=== PATIENT | male | born 1960 | race Caucasian/White ===

== ENCOUNTER 2020-06-09 17:37 | Emergency (ER) | payer OTHER, SELFPAY ==
--- NOTE | ~2020-06-09 | XR_ITS ---
EXAMINATION: XR tibia fibula LT 2V EXAM DATE: 06/09/2020 18:16 INDICATION: left low leg pain s/p injury 5 days ago . TECHNIQUE: Left tibia/fibula frontal and lateral projections obtained and reviewed. There is no prio r study for comparison. FINDINGS: There is bulky articulation of the proximal left tibiofibular syndesmosis, could be congen ital synostosis. Sequela from prior medial malleolar avulsion injury. There are no acute fractures or dislocations identified. There is no subcutaneous gas. The soft tissue is unremarkable. There ar e no radiopaque foreign bodies. IMPRESSION: 1. No acute left tibia/fibula findings. 2. Left proximal tibial fibular synostosis. Reviewed, dictated and finalized at location A.
[2020-06-09 17:48] VITALS: BP 132/87; PULSE 81; RESP 16; TEMP 36.7; O2SAT 99
--- NOTE | 2020-06-09 18:02 | ED.GENADULT ---
HPI - General Adult General Chief complaint: Extremity Injury, Lower Stated complaint: left leg fell Time Seen by Provider: 06/09/20 17:53 Source: patient and RN notes reviewed Mode of arrival: ambulatory Limitations: no limitations History of Present Illness HPI narrative: 59-year-old male presents with complaints of left lower leg pain for the past 5 days. Florin says he fell backwards off backhoe and leg was trapped between metal steps causing abrasions to leg. Aleve last this morning at 08:00 some relief. Denies radiation of pain. No numbness or tingling or bleeding. No swelling. No loss of mobility. Exacerbating factor consist of bearing weight to leg. Denies recent travel or long car rides. History of DVT or PE. No chest pain or dyspnea. Denies hitting head, loss of consciousness, seizure activity, dizziness, syncopal episodes. Remains active. Tetanus vaccine not up to date, will update today. The patient reports she have not been diagnosed with COVID-19. The patient reports she is not waiting for the results of a COVID-19 lab test. The patient reports she do not have fever, chills, weakness, fatigue, myalgia, or facial swelling. The patient reports she do not have a new or worsening cough or shortness of breath. Denies chest pain. The patient reports she do not have any rhinorrhea, congestion, sore throat, nausea, vomiting, abdominal pain, and diarrhea. Tolerating po intake well. Denies recent traveling. Denies concerns for COVID-19 or exposures been home with limited outdoor exposure except for essential household needs, work, and return home. At this time, patient is not suspected of having COVID-19. Some parts of this dictation were generated by voice recognition software and may contain typographical and/or grammatical inaccuracies. Related Data Home Medications Medication Instructions Recorded Confirmed aspirin 81 mg tablet,delayed 81 mg PO DAILY 07/11/19 06/09/20 release Allergies Allergy/AdvReac Type Severity Reaction Status Date / Time Penicillins Allergy Mild hives Verified 06/09/20 17:54 Review of Systems Review of Systems: Narrative: CONSTITUTIONAL: Denies fever, chills, sweats. EYES: Denies visual changes, redness, discharge. ENT: Denies rhinorrhea, congestion, sore throat, otalgia. CARDIOVASCULAR: Denies chest pain, palpitations, edema. RESPIRATORY: Denies dyspnea, wheezing, cough. GASTROINTESTINAL: Denies abdominal pain, nausea, vomiting, diarrhea. GENITOURINARY: Denies dysuria, hematuria, abnormal discharge SKIN: Denies rash or itching. Abrasions to LT lower leg without drainage. MUSCULOSKELETAL: Denies acute back pain or myalgia. Complains of Left lower leg pain. NEUROLOGIC: Denies numbness or focal weakness. PSYCHIATRIC: Denies anxiety or depression. All other systems reviewed & are unremarkable except as noted in HPI and below. [facility] Past Medical History Medical History (Updated 06/10/20 @ 00:00 by 2C2P Sultana) Depression HLD (hyperlipidemia) JORGE (obstructive sleep apnea) Primary osteoarthritis Rhinosinusitis Type 2 diabetes mellitus without complications Surgical History Surgical History History of sinus surgery History of tonsillectomy Family History Family History Mother Diabetes mellitus Sibling Diabetes mellitus Family history of cardiovascular disease Father Family history of cardiovascular disease Social History Social History (Updated 06/09/20 @ 18:05 by LEWIS Grimaldo) Social History: Single Smoking status: Never smoker Tobacco type: cigarettes Second hand tobacco smoke exposure: No Alcohol intake: current Drinks per week: 3 Substance use: never Substance use type: does not use Occupation/Education: occupation Gender identity (if verbalized by the patient): Male Comments At time of signature
[2020-06-09] MEDS: TETANUS,DIPHTHERIA,AC PERTUSSIS ADULT (0.5 ML) BOOSTRIX IM (18:11)
== END 2020-06-09 18:44 | disposition home or self-care (01) ==
PROVIDERS: Emergency Provider Nurse Practitioner Family; PCP Family Medicine
DX: S80.12XA Contusion of left lower leg, initial encounter (principal); X58.XXXA Exposure to other specified factors, initial encounter; S80.812A Abrasion, left lower leg, initial encounter; Z23 Encounter for immunization; E78.5 Hyperlipidemia, unspecified; E11.9 Type 2 diabetes mellitus without complications; G47.33 Obstructive sleep apnea (adult) (pediatric); M19.90 Unspecified osteoarthritis, unspecified site; Z79.82 Long term (current) use of aspirin
CPT/HCPCS: 73590; 90471; 90715; 99213; G0463

== ENCOUNTER → 2020-06-19 13:49 | Outpatient (CLI) | payer OTHER, SELFPAY ==
--- NOTE | ~2020-06-19 | XR_ITS ---
XR foot LT min 3V DATE: 06/19/2020 14:31 INDICATION: Left foot injury TECHNIQUE: 4 views COMPARISON: None FINDINGS: There is prominent plantar and slight posterior calcaneal enthesopathy. There is periarticular spurring of the distal tibia at the tibiotalar joint. No fracture or dislocation, periosteal reaction or bone destruction is detected. There is mild osteop hyte is at the first metatarsophalangeal joint. IMPRESSION: Prominent plantar and minimal posterior calcaneal enthesopathy Osteoarthritis at tibiotalar first metatarsophalangeal joints No fracture or dislocation Reviewed, dictated and finalized at location A.
--- NOTE | ~2020-06-19 | XR_ITS ---
EXAMINATION: XR ankle LT 2V DATE: 06/19/2020 14:31 INDICATION: Left foot injury, initial encounter. TECHNIQUE: 2 views of left ankle were obtained. COMPARISON: Left tibia and fibula radiographs 06/09/2020 FINDINGS: Bone alignment is normal. No acute fracture. Joint spaces are normal. There is heterotopic ossification distal to medial malleolus. There are enthesophytes at posterior and plantar aspects of calcaneal tuberosity and at base of fifth metatarsal. IMPRESSION: 1. No acute fracture. Reviewed, dictated and finalized at location A. IMPRESSION: 1. No acute fracture.
== END ==
PROVIDERS: PCP Family Medicine; Visit Provider Physician Assistant
DX: S99.922A Unspecified injury of left foot, initial encounter (principal); X58.XXXA Exposure to other specified factors, initial encounter; M19.072 Primary osteoarthritis, left ankle and foot
CPT/HCPCS: 73600; 73630

== ENCOUNTER 2022-05-27 01:26 | Day surgery (SDC) | payer OTHER, SELFPAY ==
[2022-05-16 11:54] VITALS: BMI 25.9
[2022-05-27 09:27] VITALS: BP 140/88; PULSE 59; RESP 20; TEMP 36; O2SAT 99; BMI 27.1
[2022-05-27] MEDS: LACTATED RINGERS 1,000 ML 150 ML IV CONT (09:49)
[2022-05-27 09:51] LABS: Glucose Point of Care 139 mg/dl (65-105)
--- NOTE | 2022-05-27 10:08 | PM.HPGS ---
History of Present Illness History of Present Illness Consent: Risks, benefits, and alternatives have been discussed and questions answered. Patient agrees to proceed with procedure. Chief complaint: GERD Narrative: Florin Cole is a 61 year old male With chronic gastroesophageal reflux symptoms. About 3 months ago he began having severe burning in his chest. This would last for hours. It gradually settled to the epigastric area. His symptoms are worse late in the evening during the night and in the morning. Often is worse after eating. He denies dysphagia. The pantoprazole that he is taking seems to be helping somewhat. He uses Tums and please give him a modicum of relief. Review of Systems Review of Systems: All systems reviewed & are unremarkable except as noted in HPI and below PMFSH Past Medical History Medical History Depression HLD (hyperlipidemia) JORGE (obstructive sleep apnea) Primary osteoarthritis Rhinosinusitis Type 2 diabetes mellitus without complications Surgical History Surgical History History of sinus surgery History of tonsillectomy Family History Family History Mother Diabetes mellitus Sibling Diabetes mellitus Family history of cardiovascular disease Father Family history of cardiovascular disease Social History Social History Social History: Single Smoking status: Never smoker Tobacco type: cigarettes Second hand tobacco smoke exposure: No Alcohol intake: current Drinks per week: 10 Alcohol use details: BEER/WINE Substance use: never Substance use type: does not use Living arrangements: with family Gender identity (if verbalized by the patient): Male Spiritual care concerns: No Meds Home Medications and Allergies Home Medications Medication Instructions Recorded Confirmed Type aspirin 81 mg tablet,delayed 162 mg PO DAILY 07/11/19 05/27/22 History release blood sugar diagnostic (Contour #100 ea 08/11/20 05/27/22 Rx Next Test Strips) blood-glucose meter (Contour Next #1 ea 08/11/20 05/27/22 Rx Meter) escitalopram oxalate 10 mg tablet See Rx Instructions .Route 07/20/21 05/27/22 Rx .COMPLEX #90 tabs simvastatin 10 mg tablet 10 mg PO DAILY #90 tabs 10/13/21 05/27/22 Rx empagliflozin 25 mg tablet 25 mg PO DAILY #90 tabs 01/28/22 05/27/22 Rx pantoprazole 40 mg tablet,delayed 40 mg PO QAM #90 tabs 03/07/22 05/27/22 Rx release metformin 1,000 mg tablet 1,000 mg PO BID #180 tabs 04/18/22 05/27/22 Rx ferrous sulfate 325 mg (65 mg 325 mg PO DAILY 05/16/22 05/27/22 History iron) tablet meloxicam 15 mg tablet 15 mg PO DAILY 05/16/22 05/27/22 History Allergies Allergy/AdvReac Type Severity Reaction Status Date / Time Penicillins Allergy Intermediate hives Verified 05/27/22 09:25 Vital Signs Vital Signs - 24 hr 05/27/22 09:27 Temperature 36.0 C L Pulse Rate 59 L Respiratory Rate 20 Blood Pressure 140/88 Pulse Oximetry 99 Oxygen Delivery Room Air Exam Const: General: alert Orientation/consciousness: patient oriented x3 Resp: Auscultation: clear to auscultation bilaterally Cardio: Rhythm: regular rhythm GI: GI Palp: Yes Soft to palpation and No Tenderness to palpation present (GI) Neuro: General: patient oriented x3 Assessment and Plan Assessment and plan (1) GERD (gastroesophageal reflux disease): Code(s): K21.9 - Gastro-esophageal reflux disease without esophagitis Status: Acute Assessment and Plan: EGD with possible biopsy or dilatation or cautery.
--- NOTE | 2022-05-27 10:12 | WPDANESEPPF ---
Anes - Initial Pre Proc Eval Procedure: Operation Date: 05/27/22 10:30 Proposed Procedures p Esophagogastroduodenoscopy - Ritchie Landry MD Date/Time: 05/27/22 10:12 Surgeon: Ritchie Landry MD Pre Op Diagnosis: GERD Patient Data Age: 61 Gender: M Height: 1.78 m Weight: 85.9 kg Last Vital Signs Temp 96.8 F L 05/27/22 09:27 Pulse 59 L 05/27/22 09:27 Resp 20 05/27/22 09:27 BP 140/88 05/27/22 09:27 Pulse Ox 99 05/27/22 09:27 O2 Del Method Room Air 05/27/22 09:27 Allergies Allergy/AdvReac Type Severity Reaction Status Date / Time Penicillins Allergy Intermediate hives Verified 05/27/22 09:25 Home Medications Medication Instructions Recorded Confirmed Type aspirin 81 mg tablet,delayed 162 mg PO DAILY 07/11/19 05/27/22 History release blood sugar diagnostic (Contour #100 ea 08/11/20 05/27/22 Rx Next Test Strips) blood-glucose meter (Contour Next #1 ea 08/11/20 05/27/22 Rx Meter) escitalopram oxalate 10 mg tablet See Rx Instructions .Route 07/20/21 05/27/22 Rx .COMPLEX #90 tabs simvastatin 10 mg tablet 10 mg PO DAILY #90 tabs 10/13/21 05/27/22 Rx empagliflozin 25 mg tablet 25 mg PO DAILY #90 tabs 01/28/22 05/27/22 Rx pantoprazole 40 mg tablet,delayed 40 mg PO QAM #90 tabs 03/07/22 05/27/22 Rx release metformin 1,000 mg tablet 1,000 mg PO BID #180 tabs 04/18/22 05/27/22 Rx ferrous sulfate 325 mg (65 mg 325 mg PO DAILY 05/16/22 05/27/22 History iron) tablet meloxicam 15 mg tablet 15 mg PO DAILY 05/16/22 05/27/22 History Laboratory Tests 05/27/22 09:48 POC Capillary Glucose 139 mg/dl H mg/dl (65-105) Patient hx anesthesia problems: none Family hx anesthesia problems: none Results Review: All pre-operative results and documents have been reviewed as part of the pre-operative evaluation. [facility] Past Medical History Medical History Depression HLD (hyperlipidemia) JORGE (obstructive sleep apnea) Primary osteoarthritis Rhinosinusitis Type 2 diabetes mellitus without complications Surgical History Surgical History History of sinus surgery History of tonsillectomy Family History Family History Mother Diabetes mellitus Sibling Diabetes mellitus Family history of cardiovascular disease Father Family history of cardiovascular disease Social History Social History Social History: Single Smoking status: Never smoker Tobacco type: cigarettes Second hand tobacco smoke exposure: No Alcohol intake: current Drinks per week: 10 Alcohol use details: BEER/WINE Substance use: never Substance use type: does not use Living arrangements: with family Gender identity (if verbalized by the patient): Male Spiritual care concerns: No Anes - Eval Final PreProcedure Day of Procedure 05/27/22 10:12 Patient weight: overweight Heart: regular rate and rhythm Lungs: clear to auscultation Airway: Mallampati scale class II Neurological: alert and oriented Last oral intake: >/= 8 hours ASA classification: III Emergent: no Anesthetic plan: proceed Anesthesia type and monitoring: general GIVS and standard monitoring Results Review: All pre-operative results and documents have been reviewed as part of the pre-operative evaluation. Informed Consent: The patient's anesthetic plan and its attendant risks and benefits were discussed with the patient/family/POA. Questions were solicited and answers provided to the satisfaction of the patient/family/POA.
[2022-05-27 10:30] VITALS: BP 111/62; PULSE 61; RESP 20; O2SAT 97
[2022-05-27 10:40] VITALS: BP 119/69; PULSE 56; RESP 20; O2SAT 100
[2022-05-27 10:50] VITALS: BP 112/70; PULSE 49; RESP 20; O2SAT 99
== END 2022-05-27 11:03 | disposition home or self-care (01) ==
PROVIDERS: PCP Family Medicine; Visit Provider Internal Medicine Gastroenterology
PROC: 0DJ08ZZ Inspection of Upper Intestinal Tract, Via Natural or Artificial Opening Endoscopic (ICD-10-PCS; CPT 43235; principal; 2022-05-27 10:30)
DX: K21.00 Gastro-esophageal reflux disease with esophagitis, without bleeding (principal); K22.2 Esophageal obstruction; K26.9 Duodenal ulcer, unspecified as acute or chronic, without hemorrhage or perforation; F32.A Depression, unspecified; E78.5 Hyperlipidemia, unspecified; G47.33 Obstructive sleep apnea (adult) (pediatric); M19.90 Unspecified osteoarthritis, unspecified site; E11.9 Type 2 diabetes mellitus without complications; Z79.82 Long term (current) use of aspirin; Z79.84 Long term (current) use of oral hypoglycemic drugs
CPT/HCPCS: 43239; 82948; 87081; 88305; J2001; J2704; J7120

== ENCOUNTER 2022-08-28 17:59 | Emergency (ER) | payer OTHER, SELFPAY ==
--- NOTE | ~2022-08-28 | XR_ITS ---
EXAM: XR hand RT min 3V DATE: 08/28/2022 19:00 HISTORY: SMASHED R.2ND DIGIT W/TREE STUMP. . COMPARISON: None available. FINDINGS: Normal mineralization. No fracture or dislocation. No lytic or blastic lesion. Joint space s are maintained. No erosion or periosteal change. Soft tissue laceration at the tip of the index fin sebastián. IMPRESSION: No acute osseous finding in the right hand. Reviewed, dictated and finalized at location K. FORMER
[2022-08-28 18:04] VITALS: BP 138/93; PULSE 88; RESP 18; TEMP 37; O2SAT 98
--- NOTE | 2022-08-28 19:03 | ED.WOUNDLAC ---
HPI - Wound/Laceration General Chief Complaint: Wound/Laceration Stated Complaint: right index finger smashed Time Seen by Provider: 08/28/22 18:18 History of Present Illness HPI narrative: 62-year-old male presents to the emergency room for evaluation of finger injury to his right index finger. Patient states finger was crushed in between the tree stump and his back. States the nail was ripped out of the nailbed. Tetanus is up-to-date. Related Data Home Medications Medication Instructions Recorded Confirmed aspirin 81 mg tablet,delayed 162 mg PO DAILY 07/11/19 05/27/22 release ferrous sulfate 325 mg (65 mg 325 mg PO DAILY 05/16/22 05/27/22 iron) tablet meloxicam 15 mg tablet 15 mg PO DAILY 05/16/22 05/27/22 Allergies Allergy/AdvReac Type Severity Reaction Status Date / Time Penicillins Allergy Intermediate hives Verified 08/28/22 19:04 Review of Systems Review of Systems: CONSTITUTIONAL: Denies fever, chills, or sweats. EYES: Denies visual changes, redness, or discharge. ENT: Denies rhinorrhea, congestion, sore throat, or otalgia. CARDIOVASCULAR: Denies chest pain, palpitations, or edema. RESPIRATORY: Denies cough or dyspnea. GASTROINTESTINAL: Denies abdominal pain, nausea, vomiting, or diarrhea. GENITOURINARY: Denies dysuria or hematuria. SKIN: Denies rash or itching. MUSCULOSKELETAL: Denies back pain, joint pain, or myalgia. NEUROLOGIC: Denies headache, numbness, dizziness, or weakness. PSYCHIATRIC: Denies anxiety or depression. [facility] Past Medical History Medical History Depression HLD (hyperlipidemia) JORGE (obstructive sleep apnea) Primary osteoarthritis Rhinosinusitis Type 2 diabetes mellitus without complications Surgical History Surgical History History of sinus surgery History of tonsillectomy Family History Family History Mother Diabetes mellitus Sibling Diabetes mellitus Family history of cardiovascular disease Father Family history of cardiovascular disease Social History Social History Social History: Single Smoking status: Never smoker Tobacco type: cigarettes Second hand tobacco smoke exposure: No Alcohol intake: current Drinks per week: 10 Alcohol use details: BEER/WINE Substance use: never Substance use type: does not use Gender identity (if verbalized by the patient): Male Spiritual care concerns: No Exam Narrative: GENERAL: Well-appearing, well-nourished, no physical limitations, and in no acute distress. HEAD: Normocephalic, atraumatic. EYES: Conjunctivae normal, PERRLA and EOMI. CHEST: Clear to auscultation. No respiratory distress. No wheezes rales or rhonchi. HEART: Regular rate and rhythm. No murmur heard. Normal peripheral pulses. EXTREMITIES: Normal range of motion. No edema. No clubbing or cyanosis SKIN: Right index finger: Partial nail from the proximal and medial nail beds, laceration to the side of the nail and multiple small lacerations to the fingertip. Neurovascular is intact distally NEURO: No focal deficits. Alert and oriented x3. MAEW. CN's II-XI intact bilaterally, normal gait PSYCH: Cooperative. Normal mood and affect. Course Vital Signs Vital signs: Vital Signs Temperature 37.0 C 08/28/22 18:04 Pulse Rate 88 08/28/22 18:04 Respiratory Rate 18 08/28/22 18:04 Blood Pressure 138/93 H 08/28/22 18:04 Pulse Oximetry 98 08/28/22 18:04 Oxygen Delivery Room Air 08/28/22 18:04 Temperature 37.0 C 08/28/22 18:04 Pulse Rate 88 08/28/22 18:04 Respiratory Rate 18 08/28/22 18:04 Blood Pressure 138/93 H 08/28/22 18:04 Pulse Oximetry 98 08/28/22 18:04 Oxygen Delivery Room Air 08/28/22 18:04 Procedures Laceration Laceration 1: Date: 08/28/22 Time: 20:
[2022-08-28] MEDS: HYDROmorphone HCL INJ (*CRX) 1 MG/ML SYR IV PUSH (20:18)
== END 2022-08-28 21:09 | disposition home or self-care (01) ==
PROVIDERS: Emergency Provider Nurse Practitioner Family; PCP Family Medicine
DX: S61.310A Laceration without foreign body of right index finger with damage to nail, initial encounter (principal); E11.9 Type 2 diabetes mellitus without complications; E78.5 Hyperlipidemia, unspecified; M19.90 Unspecified osteoarthritis, unspecified site; G47.33 Obstructive sleep apnea (adult) (pediatric); F32.A Depression, unspecified; Z79.85 Long-term (current) use of injectable non-insulin antidiabetic drugs; Z79.84 Long term (current) use of oral hypoglycemic drugs; W31.89XA Contact with other specified machinery, initial encounter
CPT/HCPCS: 12002; 73130; 96365; 96375; 99284; J0696; J1170

== ENCOUNTER 2023-09-01 03:34 | Day surgery (SDC) | payer OTHER, SELFPAY ==
[2023-08-15 09:18] VITALS: BMI 25.1
--- NOTE | 2023-08-30 11:09 | SUR.PREOP ---
Patient called regarding upcoming procedure. Reviewed preop instructions, appointment times, and procedure prep.
--- NOTE | 2023-08-31 17:59 | PM.HPGS ---
History of Present Illness History of Present Illness Consent: Risks, benefits, and alternatives have been discussed and questions answered. Patient agrees to proceed with procedure. Chief complaint: GERD Narrative: Florin Cole is a 63 year old male Referred for endoscopy because of chronic reflux symptoms.A he continues having severe burning in his chest.? This would last for hours.? It gradually settled to the epigastric area.? His symptoms are worse late in the evening during the night and in the morning. lately the burning will last all night long. He has not tried taking anything for it.? He was found have several duodenal ulcers when he had endoscopy Two years ago. Review of Systems Review of Systems: All systems reviewed & are unremarkable except as noted in HPI and below PMFSH Past Medical History Medical History Depression HLD (hyperlipidemia) HTN (hypertension) JORGE (obstructive sleep apnea) Primary osteoarthritis Rhinosinusitis Type 2 diabetes mellitus without complications Surgical History Surgical History History of sinus surgery History of tonsillectomy Family History Family History Mother Diabetes mellitus Sibling Diabetes mellitus Family history of cardiovascular disease Father Family history of cardiovascular disease Social History Social History Social History: Single Smoking status: Never smoker Tobacco type: cigarettes Second hand tobacco smoke exposure: No Alcohol intake: current Drinks per week: 10 Alcohol use details: BEER/WINE Substance use: never Substance use type: does not use Living arrangements: alone Occupation/Education: occupation Gender identity (if verbalized by the patient): Male Spiritual care concerns: No Meds Home Medications and Allergies Home Medications Medication Instructions Recorded Confirmed Type aspirin 81 mg tablet,delayed 162 mg PO DAILY 07/11/19 08/15/23 History release blood sugar diagnostic (Contour #100 ea 08/11/20 08/15/23 Rx Next Test Strips) blood-glucose meter (Contour Next #1 ea 08/11/20 08/15/23 Rx Meter) ferrous sulfate 325 mg (65 mg 325 mg PO DAILY 05/16/22 08/15/23 History iron) tablet metformin 1,000 mg tablet 1,000 mg PO BID #180 tabs 12/08/22 08/15/23 Rx lancets 33 gauge (OneTouch Delica #100 ea 04/05/23 08/15/23 Rx Plus Lancet) lancing device with lancets kit #1 ea 04/10/23 08/15/23 Rx (OneTouch Delica Plus Lancing Device kit) empagliflozin 25 mg tablet See Rx Instructions .Route 04/27/23 08/15/23 Rx (Jardiance) .COMPLEX #90 tabs escitalopram oxalate 10 mg tablet See Rx Instructions .Route 04/27/23 08/15/23 Rx .COMPLEX #90 tabs lisinopril 10 mg tablet 10 mg PO DAILY #90 tabs 04/27/23 08/15/23 Rx simvastatin 10 mg tablet 10 mg PO DAILY #90 tabs 04/27/23 08/15/23 Rx semaglutide 0.25 mg or 0.5 mg (2 0.5 mg (0.736 mL) subcut WEEKLY #9 05/12/23 09/01/23 Rx mg/3 mL) subcutaneous pen injector mL (Ozempic) pen needle, diabetic 33 gauge x #10 ea 05/15/23 08/15/23 Rx 5/32 (Comfort EZ Pen [place]) pantoprazole 40 mg tablet,delayed 40 mg PO QAM #90 tabs 05/30/23 08/15/23 Rx release meloxicam 15 mg tablet 15 mg PO DAILY #90 tabs 06/28/23 08/15/23 Rx Allergies Allergy/AdvReac Type Severity Reaction Status Date / Time Penicillins Allergy Intermediate hives Verified 09/01/23 12:03 Exam Const: General: alert Orientation/consciousness: patient oriented x3 Resp: Auscultation: clear to auscultation bilaterally Cardio: Rhythm: regular rhythm GI: GI Palp: Yes Soft to palpation and No Tenderness to palpation present (GI) Neuro: General: patient oriented x3 Assessment and Plan Assessment and plan (1) GERD (gastroesophageal reflux disease):
[2023-09-01 12:04] VITALS: BP 121/83; PULSE 71; RESP 20; TEMP 36.4; O2SAT 96; BMI 25.2
[2023-09-01] MEDS: LACTATED RINGERS 1,000 ML 150 ML IV CONT (12:13)
--- NOTE | 2023-09-01 12:18 | WPDANESEPPF ---
Anes - Initial Pre Proc Eval Procedure: Operation Date: 09/01/23 13:00 Proposed Procedures p Esophagogastroduodenoscopy - Ritchei Landry MD Date/Time: 09/01/23 12:18 Surgeon: Ritchie Landry MD Pre Op Diagnosis: GERD Patient Data Age: 63 Gender: M Height: 1.78 m Weight: 79.8 kg Last Vital Signs Temp 97.5 F L 09/01/23 12:04 Pulse 71 09/01/23 12:04 Resp 20 09/01/23 12:04 BP 121/83 09/01/23 12:04 Pulse Ox 96 09/01/23 12:04 O2 Del Method Room Air 09/01/23 12:04 Allergies Allergy/AdvReac Type Severity Reaction Status Date / Time Penicillins Allergy Intermediate hives Verified 09/01/23 12:03 Home Medications Medication Instructions Recorded Confirmed Type aspirin 81 mg tablet,delayed 162 mg PO DAILY 07/11/19 08/15/23 History release blood sugar diagnostic (Contour #100 ea 08/11/20 08/15/23 Rx Next Test Strips) blood-glucose meter (Contour Next #1 ea 08/11/20 08/15/23 Rx Meter) ferrous sulfate 325 mg (65 mg 325 mg PO DAILY 05/16/22 08/15/23 History iron) tablet metformin 1,000 mg tablet 1,000 mg PO BID #180 tabs 12/08/22 08/15/23 Rx lancets 33 gauge (OneTouch Delica #100 ea 04/05/23 08/15/23 Rx Plus Lancet) lancing device with lancets kit #1 ea 04/10/23 08/15/23 Rx (OneTouch Delica Plus Lancing Device kit) empagliflozin 25 mg tablet See Rx Instructions .Route 04/27/23 08/15/23 Rx (Jardiance) .COMPLEX #90 tabs escitalopram oxalate 10 mg tablet See Rx Instructions .Route 04/27/23 08/15/23 Rx .COMPLEX #90 tabs lisinopril 10 mg tablet 10 mg PO DAILY #90 tabs 04/27/23 08/15/23 Rx simvastatin 10 mg tablet 10 mg PO DAILY #90 tabs 04/27/23 08/15/23 Rx semaglutide 0.25 mg or 0.5 mg (2 0.5 mg (0.736 mL) subcut WEEKLY #9 05/12/23 09/01/23 Rx mg/3 mL) subcutaneous pen injector mL (Ozempic) pen needle, diabetic 33 gauge x #10 ea 05/15/23 08/15/23 Rx 5/32 (Comfort EZ Pen [place]) pantoprazole 40 mg tablet,delayed 40 mg PO QAM #90 tabs 05/30/23 08/15/23 Rx release meloxicam 15 mg tablet 15 mg PO DAILY #90 tabs 06/28/23 08/15/23 Rx Laboratory Tests 09/01/23 12:16 POC Capillary Glucose Pending Patient hx anesthesia problems: none Family hx anesthesia problems: none Results Review: All pre-operative results and documents have been reviewed as part of the pre-operative evaluation. [facility] Past Medical History Medical History Depression HLD (hyperlipidemia) HTN (hypertension) JORGE (obstructive sleep apnea) Primary osteoarthritis Rhinosinusitis Type 2 diabetes mellitus without complications Surgical History Surgical History History of sinus surgery History of tonsillectomy Family History Family History Mother Diabetes mellitus Sibling Diabetes mellitus Family history of cardiovascular disease Father Family history of cardiovascular disease Social History Social History Social History: Single Smoking status: Never smoker Tobacco type: cigarettes Second hand tobacco smoke exposure: No Alcohol intake: current Drinks per week: 10 Alcohol use details: BEER/WINE Substance use: never Substance use type: does not use Living arrangements: alone Occupation/Education: occupation Gender identity (if verbalized by the patient): Male Spiritual care concerns: No Anes - Eval Final PreProcedure Day of Procedure 09/01/23 12:18 Patient weight: normal Heart: regular rate and rhythm Lungs: clear to auscultation Airway: Mallampati scale class II Neurological: alert and oriented Last oral intake: >/= 8 hours ASA classification: III Emergent: no Anesthetic plan: proceed Anesthesia type and monitoring: general GIVS and standard monitoring Results Review: All pre-operative results an
[2023-09-01 12:19] LABS: Glucose Point of Care 106 mg/dl (65-105)
[2023-09-01 12:50] VITALS: BP 135/91; PULSE 78; RESP 20; O2SAT 98
[2023-09-01 13:00] VITALS: BP 132/93; PULSE 80; RESP 20; O2SAT 98
[2023-09-01 13:10] VITALS: BP 138/91; PULSE 78; RESP 20; O2SAT 98
== END 2023-09-01 13:28 | disposition home or self-care (01) ==
PROVIDERS: PCP Family Medicine; Visit Provider Internal Medicine Gastroenterology
PROC: 0DJ08ZZ Inspection of Upper Intestinal Tract, Via Natural or Artificial Opening Endoscopic (ICD-10-PCS; CPT 43235; principal; 2023-09-01 13:00)
DX: K21.9 Gastro-esophageal reflux disease without esophagitis (principal); E78.5 Hyperlipidemia, unspecified; I10 Essential (primary) hypertension; E11.9 Type 2 diabetes mellitus without complications; G47.33 Obstructive sleep apnea (adult) (pediatric)
CPT/HCPCS: 43235; 82948; J2704; J7120

== ENCOUNTER 2023-09-24 14:13 | Emergency (ER) | payer OTHER, SELFPAY ==
[2023-09-24 14:14] VITALS: BP 126/74; PULSE 82; RESP 18; TEMP 36.4; O2SAT 100
--- NOTE | 2023-09-24 17:59 | ED.WOUNDLAC ---
HPI - Wound/Laceration General Chief Complaint: Wound/Laceration Stated Complaint: laceration Time Seen by Provider: 09/24/23 17:10 Source: patient Mode of arrival: ambulatory Limitations: no limitations History of Present Illness HPI narrative: This is a 63 year old male that presents to the ER for left 4th finger laceration sustained this afternoon. Reports he was using a saw and accidentally cut his finger with a piece of plastic. Reports bleeding and pain to the area. He is up to date on tetanus. Denies decreased ROM or numbness. Related Data Home Medications Medication Instructions Recorded Confirmed aspirin 81 mg tablet,delayed 162 mg PO DAILY 07/11/19 08/15/23 release ferrous sulfate 325 mg (65 mg 325 mg PO DAILY 05/16/22 08/15/23 iron) tablet Allergies Allergy/AdvReac Type Severity Reaction Status Date / Time Penicillins Allergy Intermediate hives Verified 09/24/23 14:14 Review of Systems Review of Systems: CONSTITUTIONAL: Denies fever SKIN: Reports laceration MUSCULOSKELETAL: Denies joint pain, or myalgia. NEUROLOGIC: Denies numbness All systems reviewed & are unremarkable except as noted in HPI and below PMFSH Past Medical History Medical History Depression HLD (hyperlipidemia) HTN (hypertension) JORGE (obstructive sleep apnea) Primary osteoarthritis Rhinosinusitis Type 2 diabetes mellitus without complications Surgical History Surgical History History of sinus surgery History of tonsillectomy Family History Family History Mother Diabetes mellitus Sibling Diabetes mellitus Family history of cardiovascular disease Father Family history of cardiovascular disease Social History Social History Social History: Single Smoking status: Never smoker Tobacco type: cigarettes Second hand tobacco smoke exposure: No Alcohol intake: current Drinks per week: 10 Alcohol use details: BEER/WINE Substance use: never Substance use type: does not use Living arrangements: alone Occupation/Education: occupation Gender identity (if verbalized by the patient): Male Spiritual care concerns: No Exam Narrative: GENERAL: Well-appearing, well-nourished, and in no acute distress. HEAD: Normocephalic, atraumatic. EYES: EOMI. EXTREMITIES: Normal range of motion. No edema or obvious deformity. 1cm linear laceration into subcutaneous tissue to the distal phalanx palmar surface SKIN: Warm, dry, no rash. NEURO: No focal deficits. Alert and oriented x3. PSYCH: Normal mood and affect Course Course Emergency Course: Patient educated on wound care Vital Signs Vital signs: Vital Signs Temperature 97.6 F 09/24/23 14:14 Pulse Rate 82 09/24/23 14:14 Respiratory Rate 18 09/24/23 14:14 Blood Pressure 126/74 09/24/23 14:14 Pulse Oximetry 100 09/24/23 14:14 Oxygen Delivery Room Air 09/24/23 14:14 Temperature 97.6 F 09/24/23 14:14 Pulse Rate 82 09/24/23 14:14 Respiratory Rate 18 09/24/23 14:14 Blood Pressure 126/74 09/24/23 14:14 Pulse Oximetry 100 09/24/23 14:14 Oxygen Delivery Room Air 09/24/23 14:14 Procedures Laceration Laceration 1: Date: 09/24/23 Time: 18:56 Site: hand Side (If applicable): left Size (cm): 1 Description: linear Depth: simple, single layer Local Anesthetic: lidocaine 1% Amount of anesthesia used (mL): 3 Pre-repair: wound explored and irrigated ====== Skin Level ====== Skin layer closed with: nylon Size (cm): 4-0 Number of sutures: 1 Technique: simple, interrupted ====== Subcutaneous Layer ====== ====== Muscle Layer ====== ====== Tendon Layer ====== MDM - Wound/Laceratio
== END 2023-09-24 19:23 | disposition home or self-care (01) ==
PROVIDERS: Emergency Provider Physician Assistant; PCP Family Medicine
DX: S61.215A Laceration without foreign body of left ring finger without damage to nail, initial encounter (principal); E78.5 Hyperlipidemia, unspecified; I10 Essential (primary) hypertension; E11.9 Type 2 diabetes mellitus without complications; W27.0XXA Contact with workbench tool, initial encounter
CPT/HCPCS: 12001; 99282

== ENCOUNTER 2024-09-13 02:32 | Day surgery (SDC) | payer OTHER, SELFPAY ==
[2024-09-03 09:19] VITALS: BMI 25.1
--- OUTSIDE RECORDS SUMMARY | 2024-09-13 06:29 | XMS_ITS | Data Portability ---
Author Organization [place] - [facility], Parisa Phillip Address [address] [place] [address] Care Team Providers Care Sales Representative Cash Registers Name Role Phone HUMA MALONE Primary Care Provider Assessment Encounter Date Assessment Date Assessment LastModified by Organization Details LastModified Time 03/21/2024 03/21/2024 LABS Patient presents today for noted below ordered by: Christiano Jorgensen Procedure explained and patient verbalized understanding of the procedure and labs to be drawn today. Venipuncture performed using aseptic technique in the side of right side arm . Venipuncture successful on the ____1__ attempt with no complications. ( If complications: you can enter here) ??? Dressing applied to the site(s) and pressure held. No signs or symptoms of venipuncture complications observed. Lab results sent to . Patient left ambulatory with no complaints of pain or discomfort voiced. I mar one tiger stripe tube [email or web address] Not available 03/21/2024 10:44:02 05/30/2024 05/30/2024 Gave the influenza vaccine today on patient left deltoid. Patient left with no complications. [email or web address] Not available 05/30/2024 15:12:35 Plan of Treatment Reminders Order Date Submit Date Provider Last Modified By Organization Details Last Modified Time Details Appointments None recorded. Lab HbA1c (hemoglobin A1c), blood 2023 024 [email or web address] [address] [place], [address], 4 10:55:35 lipid panel, blood 2023 024 [email or web address] [address] [facility] [address], [address], 4 10:55:36 glucose, QN, fingerstick , blood (glucometer ) 2023 024 [email or web address] [address] [facility] [address], [address], 4 10:55:37 cotinine, quantitativ e, unspecified specimen 2023 024 [place] [email or web address] [address] [facility] [address], [address], 4 10:55:38 lipid panel, serum [address] [facility], [address] [place] [address], [place], [address], 10:08:48 Referral None recorded. Procedures None recorded. Surgeries None recorded. Imaging None recorded. Medication Orders None recorded. Patient TargetsNo targets recorded. Patient InstructionsNo instructions recorded. Reason for Referral None Reported. Results Created Date Observation Date Name Description Value Unit Range Abnormal Flag Note LastModifiedBy Organization Detail LastModifiedTime 03/21/20 24 03/22/2024 LIPID PANEL AND CHOL/ HDL RATIO cholesterol, total 166 mg/dL 100-19 9 normal Not Available [facility] ([facility]) [address] [facility], [place], [address], 03/22/2024 10:08:47 03/21/20 24 03/22/2024 LIPID PANEL AND CHOL/ HDL RATIO triglyceride s 71 mg/dL 0-149 normal Not Available [facility] ([facility]) [address] [facility], [place], [address], 03/22/2024 10:08:47 03/21/20 24 03/22/2024 LIPID PANEL AND CHOL/ HDL RATIO HDL cholesterol 71 mg/dL >39 normal Not Available [facility]) [address] [facility], [place], [address], 03/22/2024 10:08:47 03/21/20 24 03/22/2024 LIPID PANEL AND CHOL/ HDL RATIO VLDL cholesterol booker 14 mg/dL 5-40 Not Available [facility] ([facility]) [address] [facility] [place], [address], 03/22/2024 10:08:47 03/21/20 24 03/22/2024 LIPID PANEL AND CHOL/ HDL RATIO LDL chol calc ([facility]) 81 mg/dL 0-99 Not Available 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) [address] [facility], [place], [address], 03/22/2024 10:08:47 03/21/20 24 03/22/2024 LIPID PANEL AND CHOL/ HDL RATIO T. chol/HDL ratio 2.3 ratio 0.0-5. 0 T. Chol/ HDL Ratio Men Women 1/2 Avg.R isk 3.4 3.3 Avg.R isk 5.0 4.4 2X Avg.R isk 9.6 7.1 3X Avg.R isk 23.4 11.0 Not Available [facility] ([facility]) [address] [place], [address], 03/22/2024 10:08:47 03/21/20 24 03/21/2024 HbA1c (hemo globi n A1c), blood HbA1c 6.5 Not Available [address], [address], 03/21/2024 08:28:01 03/21/20 24 03/21/2024 lipid panel , blood total cholesterol >400 mg/dL <200 Not Available [address], [address], 03/21/2024 08:28:01 03/21/20 24 03/21/2024 lipid panel , blood LDL mg/dL <100 Not Available [address], [address], 03/21/2024 08:28:01 03/21/20 24 03/21/2024 lipid panel , blood HDL 119 mg/dL >50 Not Available [address], [address], 03/21/2024 08:28:01 03/21/20 24 03/21/2024 lipid panel , blood triglyceride s 239 mg/dL <150 Not Available [address], [address], 03/21/2024 08:28:01 03/21/20 24 03/21/2024 lipid panel , blood TC/HDL ratio <4.5 Not Available [address], [address], 03/21/2024 08:28:01 03/21/20 24 03/21/2024 gluco se, QN, finge rstic k, blood (gluc omete r) blood glucose (fasting) 149 md/dL 65-99 Not Available [address], [address], 03/21/2024 08:28:01 03/21/20 24 03/21/2024 gluco se, QN, finge rstic k, blood (gluc omete r) blood glucose (non-fasting ) mg/dL <140 Not Available [facility] - [address], [address], 03/21/2024 08:28:01 03/21/20 24 03/21/2024 cotin ine, quant itati ve, unspe cifie d speci men Urine Pass Not Available [facility] - [address], [address], 03/21/2024 08:28:01 Result Notes None recorded. Problems Name Problem SNOMED Code Status Onset Date Resolution Date Notes Provider Name and Address Organization Details Recorded Time Contusio n of eye 525759324 Active 2022 CHRISTIANO JORGENSEN NP [address], [facility] [place], [address] , [place] - [facility] 3 16:22:28 Contusio n of eye 667563790 Active 2022 CHRISTIANO JORGENSEN NP [address], [facility] [place], [address] , [place] [facility] 3 16:30:13 Hyperlip idemia 70833785 Active 2015 Hyperlip idemia; PROBABIL ITY: 0 Confir mation: Confirme carissa Doradoa tedDispl ay: Hyperlip idemia C lassific ation: Medical [facility] eDateTim e: 19:18:54 +00:00 Not Available [facility] 4 04:26:26 Blephari tis of left eyelid [id number] 9102 Completed 202110/03/2023 Blephari tis of left eyelid; PROBABIL ITY: 0 SENSIT IVITY: 0.0 Conf irmation : Confirme d Annota tedDispl ay: Blephari tis of left eye Clas sifamariti on: Medical Not Available [facility] 4 04:26:27 Requires varicell a vaccinat ion 662654621 Active 2022 Requires varicell a vaccinat ion; PROBABIL ITY: 0 SENSIT IVITY: 0.0 Conf irmation : Confirme carissa Annota tedDispl ay: Need for shingles vaccine Classifi cation: Medical Lifecycl eDateTim e: 20:32:00 +00:00 Not Available [facility] 4 04:26:27 Sleep apnea 31319482 Active 2015 Sleep apnea... ..; PROBABIL ITY: 0 Confir mation: Confirme d Annota tedDispl ay: Sleep apnea Cl assifica tion: Medical Lifecycl eDateTim e: 17:20:18 +00:00 Not Available [facility] 4 04:26:27 Seasonal allergic rhinitis 331070411 Active 2015 Seasonal allergie s.....; PROBABIL ITY: 0 Confir mation: Confirme d Annota tedDispl ay: Seasonal allergie s Classi fication : Medical Lifecycl eDateTim e: 19:18:34 +00:00 Not Available [facility] 4 04:26:27 Hyperten sive disorder 03969684 Active 2017 Hyperten sive disorder ; PROBABIL ITY: 0 Confir mation: Confirme d Annota tedDispl ay: Hyperten jm Cla ssificat ion: Medical Lifecycl eDateTim e: 19:23:17 +00:00 Not Available [facility] 4 04:26:27 Arthriti s 1594297 Active 2015 Arthriti s; PROBABIL ITY: 0 Confir mation: Confirme d Annota tedDispl ay: Arthriti s Classi fication : Medical Lifecycl eDateTim e: 19:19:42 +00:00 Not Available [facility] 4 04:26:27 Type 2 diabetes mellitus 19355965 Active 2015 Diabetes mellitus type 2; PROBABIL ITY: 0 Confir mation: Confirme d Annota tedDispl ay: Diabetes mellitus type 2 Classi fication : Medical Lifecycl eDateTim e: 17:19:48 +00:00 Not Available [facility] 4 04:26:27 Problem Notes None recorded. Medical Equipment None Reported. Allergies Allergen ID Allergen Name Allergen Category Reaction Reaction Severity Criticality Documentation Date Start Date Code Code System Note Provider Name and Address Organization Details Recorded Time 578982 Product containin g penicilli n and antibioti c (product) medicatio n hives Not available low 06/13/2023 01377 05 SNOMED [place] Jolene null, [place] - [facility] 3 14:31:30 Medications Name Sig Start Date Stop Date Status Note LastModified by Organization Details LastModified Time Lidocaine Viscous 2 % mucosal solution 01/16 completed StopType : Physicia n Stop Mac gIdentif icationN umber: [id number] T otalRefi lls: 0 Consta ntIndica tor: Yes CSAS chedule: 0.0 acti ve_statu s_dt_tm: 2 1:43:13 PM Not Available Not Available Not Available hydrocodo ne 5 mg-acetam inophen 325 mg tablet TAKE 1 TABLET BY MOUTH EVERY 8 HOURS NEEDED 03/21 completed Not Available Not Available Not Available meloxicam 15 mg tablet active Not Available Not Available Not Available simvastat in 10 mg tablet active Not Available Not Available Not Available Zithromax 250 mg tablet 10/25 completed StopType : Physicia n Stop Mac gIdentif icationN umber: [id number] S cheduled PRN: No Total Refills: 0 Consta ntIndica tor: Yes CSAS chedule: 0.0 acti ve_statu s_dt_tm: 0 11:26:51 AM Not Available Not Available Not Available acyclovir 400 mg tablet 2021 active Duration : 7 Durati onUnit: day(s) S topType: Soft Stop Mac gIdentif icationN umber: [id number] S cheduled PRN: No Total Refills: 0 Consta ntIndica tor: Yes CSAS chedule: 0.0 acti ve_statu s_dt_tm: 2 1:40:05 PM Not Available Not Available Not Available sulfameth oxazole 800 mg-trimet hoprim 160 mg tablet TAKE 1 TABLET BY MOUTH EVERY 12 HOURS FOR 7 DAYS 03/21 completed Not Available Not Available Not Available Medrol 4 mg tablet 10/25 completed StopType : Physicia n Stop Mac gIdentif icationN umber: [id number] S cheduled PRN: No Total Refills: 0 Consta ntIndica tor: Yes CSAS chedule: 0.0 acti ve_statu s_dt_tm: 02/20/2020 11:19:15 AM Not Available Not Available Not Available Bactroban 2 % topical ointment 04/07 completed StopType : Physicia n Stop Mac gIdentif icationN umber: [id number] S cheduled PRN: No Total Refills: 0 Consta ntIndica tor: Yes acti ve_statu s_dt_tm: 03/28/2016 12:42:13 PM Not Available Not Available Not Available pantopraz ole 40 mg tablet,de layed release active Not Available Not Available Not Available simvastat in 20 mg tablet 10/13 completed Disconti nueDate: 3 2:21:00 PM StopT ype: Physicia n Stop Mac gIdentif icationN umber: [id number] T otalRefi lls: 0 Cancel Reason: Duplicat e Order Co nstantIn dicator: Yes CSAS chedule: 0.0 acti ve_statu s_dt_tm: 11/23/2015 12:19:15 PM Not Available Not Available Not Available erythromy shawn 5 mg/gram (0.5 %) eye ointment 02/24 completed Duration : 5 Durati onUnit: days Sto pType: Physicia n Stop Mac gIdentif icationN umber: [id number] S cheduled PRN: No Total Refills: 0 Consta ntIndica tor: Yes CSAS chedule: 0.0 acti ve_statu s_dt_tm: 02/20/2020 11:18:26 AM Not Available Not Available Not Available metformin 1,000 mg tablet active Not Available Not Available Not Available Cipro 500 mg tablet 01/14 completed Duration : 7 Durati onUnit: day(s) S topType: Physicia n Stop Mac gIdentif icationN umber: [id number] S cheduled PRN: No Total Refills: 0 Consta ntIndica tor: Yes CSAS chedule: 0.0 acti ve_statu s_dt_tm: 6 9:56:28 AM Not Available Not Available Not Available lisinopri l 10 mg tablet TAKE 1 TABLET BY MOUTH DAILY active Not Available Not Available No t Available Flexeril 10 mg tablet 12/02 completed Duration : 10 Durat ionUnit: days PRN Instruct ions: for spasm St opType: Physicia n Stop Mac gIdentif icationN umber: [id number] S cheduled PRN: Yes Tota lRefills : 0 Consta ntIndica tor: No activ e_status _dt_tm: 11/23/2015 12:44:46 PM Not Available Not Available Not Available escitalop luly 10 mg tablet active Not Available Not Available Not Available meloxicam 10/13 completed Disconti nueDate: 3 2:20:00 PM StopT ype: Physicia n Stop Mac gIdentif icationN umber: [id number] T otalRefi lls: 0 Cancel Reason: Duplicat e Order Co nstantIn dicator: Yes CSAS chedule: 0.0 acti ve_statu s_dt_tm: 9 2:37:38 PM Not Available Not Available Not Available aspirin 10/13 completed StopType : Physicia n Stop Mac gIdentif icationN umber: [id number] T otalRefi lls: 0 Consta ntIndica tor: Yes CSAS chedule: 0.0 acti ve_statu s_dt_tm: 9 2:38:06 PM Not Available Not Available Not Available [facility] 07/17 completed Disconti nueDate: 07/17/20 18 1:24:00 PM StopT ype: Physicia n Stop Mac gIdentif icationN umber: [id number] T otalRefi lls: 0 Cancel Reason: Physicia n Request Constant Indicato r: Yes CSAS chedule: 0.0 acti ve_statu s_dt_tm: 11/23/2015 12:19:15 PM Not Available Not Available Not Available Fluzone 05/29 completed DrugForm : Susp Sto pType: Physicia n Stop Mac gIdentif icationN umber: [id number] S cheduled PRN: No NextD oseDate: 7 1:23:00 PM Const antIndic ator: No activ e_status _dt_tm: 1:23:57 PM Not Available Not Available Not Available Victoza 07/17 completed Disconti nueDate: 07/17/20 18 1:20:00 PM StopT ype: Physicia n Stop Mac gIdentif icationN umber: [id number] T otalRefi lls: 0 Cancel Reason: Physicia n Request Constant Indicato r: Yes CSAS chedule: 0.0 acti ve_statu s_dt_tm: 11/23/2015 12:19:15 PM Not Available Not Available Not Available Helen Chewable Low Dose Aspirin 81 mg tablet 2022 active StopType : Soft Stop Mac gIdentif icationN umber: [id number] T otalRefi lls: 0 Consta ntIndica tor: Yes CSAS chedule: 0.0 acti ve_statu s_dt_tm: 3 2:23:39 PM Not Available Not Available Not Available Iron 100 Plus 2022 active StopType : Soft Stop Mac gIdentif icationN umber: [id number] T otalRefi lls: 0 Consta ntIndica tor: Yes CSAS chedule: 0.0 acti ve_statu s_dt_tm: 3 2:23:39 PM Not Available Not Available Not Available Jardiance 25 mg tablet active Not Available Not Available Not Available Afluria 0780-943905/26 completed StopType : Physicia n Stop Mac Dianetif amaritionN umber: [id number] N extDoseD ate: 6 3:00:00 PM Const antIndic ator: No activ e_status _dt_tm: 6 2:45:59 PM Not Available Not Available Not Available Shingrix (PF) 10/13 completed StopType : Physicia n Stop Mac Benedictotif icationN umber: [id number] N extDoseD ate: 3 2:33:00 PM Total Refills: 0 Consta ntIndica tor: No CSASc hedule: 0.0 acti ve_statu s_dt_tm: 3 2:33:12 PM Not Available Not Available Not Available Fluzone Quad (PF) 60 mcg (15 mcg x 4)/0.5 mL IM suspensio n 06/27 completed StopType : Physicia n Stop Mac Rajinderdentif icationN umber: [id number] N extDoseD ate: 8 1:58:00 PM Const antIndic ator: No activ e_status _dt_tm: 8 1:59:07 PM Not Available Not Available Not Available BD Lyubov 2nd Gen Pen Needle 32 gauge x /32 USE DIRECTED active Not Available Not Available No t Available OneTouch Delica Plus Lancet 33 gauge USE TO TEST BLOOD SUGAR DAILY active Not Available Not Available No t Available Flulaval Quad 60 mcg (15 mcg x 4)/0.5 mL intramusc ular susp. 06/04 completed StopType : Physicia n Stop Mac Rajinderdentif icationN umber: [id number] N extDoseD ate: 06/04/20 19 2:34:00 PM Const antIndic ator: No activ e_status _dt_tm: 06/05/20 19 2:36:09 PM Not Available Not Available Not Available Fluzone Quad (PF) 06/28 completed StopType : Physicia n Stop Mac gIdentif icationN umber: [id number] S cheduled PRN: No NextD oseDate: 11:49:00 AM Const antIndic ator: No activ e_status _dt_tm: 11:49:31 AM Not Available Not Available Not Available Ozempic 0.25 mg or 0.5 mg (2 mg/3 mL) subcutane ous pen injector INJECT 0.25 MG UNDER THE SKIN WEEKLY active Not Available Not Available No t Available Vitals Date Recorded Body height Provider Name an d Address Organization Details Last Updated DateTime 06/13/2023 177.8 cm Madisonshruthi Fernández [place] [facility] 14:32:56 Date Recorded Body mass index (BMI) Provider Name and Address Organization Details Last Updated DateTime 06/13/2023 25.7 kg/m2 [place] Jolene [place] [facility] 14:33:03 Date Recorded Body weight Provider Name an d Address Organization Details Last Updated DateTime 06/13/2023 00583.03 g Rob Jolene [place] [facility] 14:33:04 Date Recorded Heart rate Provider Name an d Address Organization Details Last Updated DateTime 06/13/2023 86 /min Rob Jolene [place] [facility] 14:35:49 Date Recorded Oxygen saturation Oxygen saturation in Arterial blood by Pulse oximetry Provider Name and Address Organization Details Last Updated DateTime 06/13/2023 98 % 98 % Rob Jolene [place] [facility] 14:35:51 Date Recorded Body temperature Provider Name a nd Address Organization Details Last Updated DateTime 06/13/2023 98.6 [degF] Rob Jolene [place] [facility] 06/13/20 14:35:59 Date Recorded Body height Provider Name an d Address Organization Details Last Updated DateTime 03/21/2024 177.8 cm Eliud Cook [place] [facility] 03/21/20 10:07:42 Date Recorded Body mass index (BMI) Body weight Provider Name and Address Organization Details Last Updated DateTime 03/21/2024 26.3 kg/m2 48589.4 g Eliud Cook [place] [facility] 03/21/2024 10:07:50 Date Recorded Heart rate Provider Name an d Address Organization Details Last Updated DateTime 03/21/2024 65 /min Eliud Cook [place] [facility] 03/21/20 24 10:08:03 Date Recorded Body temperature Provider Name a nd Address Organization Details Last Updated DateTime 03/21/2024 98.3 [degF] Eliud [place] [facility] 024 10:08:08 Date Recorded Oxygen saturation Oxygen saturation in Arterial blood by Pulse oximetry Provider Name and Address Organization Details Last Updated DateTime 03/21/2024 99 % 99 % Eliud Cook [place] [facility] 0 03/21/2024 10:08:16 Date Recorded Systolic blood pressure Diastolic blood pressure Provider Name and Address Organization Details Last Updated DateTime 06/13/2023 120 mm[Hg] 79 mm[Hg] Rob Fernández [place] [facility] 1 14:34:59 Date Recorded Systolic blood pressure Diastolic blood pressure Provider Name and Address Organization Details Last Updated DateTime 03/21/2024 124 mm[Hg] 80 mm[Hg] Eliud Cook [place] [facility] 03/21/2024 10:07:59 Social History Question Answer Notes LastModified by Organizat ion Details LastModified Time Tobacco Smoking Status Never Smoker Eliud jackson [place] [facility] 03/21/2024 10:09:44 In The 14 Days Before Symptom Onset, Have You Had Close Contact With A Laboratory-confirm ed COVID-19 While That Case Was Ill? No [email or web address] Information n ot available 03/21/2024 In The 14 Days Before Symptom Onset, Have You Had Close Contact With A Person Who Is Under Investigation For COVID-19 While That Person Was Ill? No Information not available 03/21/2024 Have You Been To An Area Known To Be High Risk For COVID-19? No [email or web address] Information not available 03/21/2024 Cigar Smoking No [email or web address] Information not available 03/21/2024 Sex: Unknown Functional Status None recorded. Mental Status None recorded. Family History Nothing Reported Notes:Brother: Heart disease Father: Heart disease, Hypercholesterolemia Mother: Diabetes.... Medical History Condition Response Coronary Artery Disease N Gout N Macular Degeneration N Atrial Fibrillation N Heart Valve Disorder N Kidney Stones N Hyperthyroidism N MRSA N COPD N Depression N Migraine Headaches N Hodgkin's Lymphoma N Retinopathy Diabetic N Positive TB Skin Test N Obstructive Sleep Apnea N Sinus Infections N Infertility N Carpal Tunnel N Lupus (SLE) N DVT (Blood Clot in legs) N Rheumatoid Arthritis N Fibromyalgia N Incontinence, stress N Anxiety N Venous Insufficiency (Swelling of Legs & Ankles) N Anemia, other N Vit D Deficiency N Peptic Ulcer Disease N Irritable bowel N Menstrual Cycle- Heavy N Blood in urine N GERD (reflux) N Compression fracture of spine (vertebral ) N Carotid Artery Disease N Tuberculosis N AIDS/HIV N Hip fracture N Anemia, iron deficient N Asthma N Blood clotting disorder N Diabetes Type II N Peripheral Vascular Disease N Myocardial Infarction with Stent (Heart Attack) N Abnormal Pap N Hepatitis N Diabetes Type I N Cirrhosis N Seizure Disorder N Stroke (CVA) N Colon Cancer N Leukemia N Erectile Dysfunction (ED) N Breast Cancer N Raynauds Disease N Myocardial Infarction w/o Stent (Heart A ttack) N Lung Cancer N Hypothyroidism N Glaucoma N [place] N Bipolar N Hypertension (High Blood Pressure) N Irregular Menses N Other Rhythm Problem N Bone loss (Osteopenia or osteoporosis) N Varicose Veins N Hearing Loss N Cervical Cancer N Hypoglycemia N Hyperlipidemia (High Cholesterol) N Chronic Kidney Disease N Vit B12 Deficiency N Incontinence, urge N Menstrual Cycle- Painful N Panic Disorder N Schizophrenia N Osteoarthritis N BPH (enlarged prostate) N UTI Chronic N Lyme Disease N Prostate Cancer N Abdominal Aortic Aneurysm N Shingles (HZ) N Non-Hodgkin's Lymphoma N Ovarian Cancer N Abnormal Mammogram N Lumbar Spine Disease N Cervical Spine Disease N Congestive Heart Failure (CHF) N Eczema N Diverticulitis N Rectal Bleeding N Dementia N Bladder Cancer N Psoriasis N Gall Stones N Thrombocytopenia (low platelets) N Allergic Rhinitis (seasonal allergies) N Immunizations Vaccine Type Date Status Note Provider Nam e and Address Organization Details Recorded Time Tdap 05/21/2020 completed Rob Fernández null, [place] - [facility] 06/13/2023 14:40:15 Influenza, split virus, trivalent, PF 05/30/2024 completed Eliud jackson, [place] - [facility] 05/30/2024 15:12:19 Past Encounters Encounter ID Performer Location Encounter Start Date Encounter Closed Date Diagnosis/Indication Diagnosis SNOMED-CT Code Diagnosis ICD10 Code Diagnosis Note [id number] CHRISTIANO JORGENSEN NP [email or web address] [address] [address] 06/13/2023 14:26:20 06/13/2023 16:46:32 Contusion of eye 696909042 S05.12XA Area cleansed with NS and JOSE ANGEL applied. Encouraged to keep the area clean and dry. Apply JOSE ANGEL BID. Ice pack given to pt and encouraged to use ice pack for 10 minutes 4-5 times per day. F/u if symptoms worsen or signs of infection which were reviewed with pt. Pt verbalized understand ing. [id number] CHRISTIANO JORGENSEN NP [facility] [address] [address] 03/21/2024 09:57:13 03/21/2024 11:18:58 Adult health examination 760145701 Z00.00 Urine cotinine is negative. A1c is 6.7%. POC lipid panel reveals TC >400 with HDL of 119 and triglyceri nicole of 239. Last year TC was 204 with normal triglyceri nicole and HDL. Questionin g POC results. Serum lipid panel ordered. Will call him with the results and complete [employer] forms at that time. Will need to come by health center to [facility] completed forms to send to [facility]. Encouraged to f/u for colon cancer screening. Pt verbalized understand ing. Type 2 ryan betes mellitus 07601550 E11.9 Encouraged healthy well balanced diet low in sugar and simple carbs. F/u with PCP for ongoing management . Pt verbalized understand ing. [id number] Eliud Joey [address] [address] 05/30/2024 14:43:16 05/30/2024 15:13:20 Administration of influenza vaccine 64891378 Z23 Health Concerns Section Related Observation LastModified by Organization Detai ls LastModified Time None Recorded Concern Status LastModified by Organization Details LastModified Time None Recorded Advance Directives Directive None Recorded Payers Encounter Date Sequence Insurance Name Policy Number Policy Shaffer Covered Member ID Shaffer Member ID Guarantor Name 06/13/2023 1 [employer] - [employer] - ALL PLANS (PPO) [id number] Florin Cole UNKNOWN Florin Cole 03/21/2024 1 [employer] - [employer] - ALL [employer]ANS (PPO) [id number] Florin Cole UNKNOWN Florin Cole 05/30/2024 1 [employer] - [employer] - ALL PLANS (PPO) [id number] Florin Cole UNKNOWN Florin Cole Notes Date Note Type Note Provider Name and Address Organization Details Recorded Time 06/13/2023 text/html Pt [facility] due to facial/left eye orbit injury 2 days ago. States he was working to attach a farm implement to his tractor when he face planted on a metal farm implement while working around his pond. Was trying to attach chains and lost his balance and fell over. Denies any dizziness or syncopal episode. Denies any pain or vision changes. No LOC at time of injury. Last Tdap booster was 3 years ago. CHRISTIANO JORGENSEN NP [address], [place], [address], [place] [facility] 06/13/2023 16:45:58 03/21/2024 text/html Pt with a hx of diabetes and HTN presents to [facility] for Vitality screening. Takes Simvastatin for his cholesterol. Does not check his blood sugar at home unless he feels shaky, anxious or irritable. Sees PCP on a regular basis. Stays away from junk food. Exercises by doing yard work and walking. Needs to schedule colon cancer screening. UTD on dental and eye exam. Does not smoke and drinks alcohol socially.. Shingles vaccines last year. Refusing pneumonia vaccine. CHRISTIANO JORGENSEN NP [address], [place], [address], [place] [facility] 03/21/2024 11:00:36
[2024-09-13 06:50] VITALS: BP 125/98; PULSE 72; RESP 20; TEMP 35.8; O2SAT 100
[2024-09-13] MEDS: LACTATED RINGERS 1,000 ML 150 ML IV CONT (07:04)
[2024-09-13 07:07] LABS: Glucose Point of Care 160 mg/dl (65-105)
--- NOTE | 2024-09-13 07:07 | WPDANESEPPF ---
Anes - Initial Pre Proc Eval Procedure: Operation Date: 09/13/24 08:00 Proposed Procedures p Colonoscopy - David Marc MD Date/Time: 09/13/24 07:07 Surgeon: David Marc MD Pre Op Diagnosis: FAMILY HIST. 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 ORGAN Patient Data Age: 64 Gender: M Height: 1.78 m Weight: 77.1 kg Last Vital Signs Temp 96.5 F L 09/13/24 06:50 Pulse 72 09/13/24 06:50 Resp 20 09/13/24 06:50 BP 125/98 H 09/13/24 06:50 Pulse Ox 100 09/13/24 06:50 O2 Del Method Room Air 09/13/24 06:50 Allergies Allergy/AdvReac Type Severity Reaction Status Date / Time Penicillins Allergy Intermediate hives Verified 09/13/24 06:46 Home Medications ?Medication ?Instructions ?Recorded ?Confirmed ?Type aspirin 81 mg tablet,delayed 162 mg PO DAILY 07/11/19 09/13/24 History release blood sugar diagnostic (Contour #100 ea 08/11/20 09/03/24 Rx Next Test Strips) blood-glucose meter (Contour Next #1 ea 08/11/20 09/03/24 Rx Meter) ferrous sulfate 325 mg (65 mg 325 mg PO DAILY 05/16/22 09/13/24 History iron) tablet lancets 33 gauge (OneTouch Delica #100 ea 04/05/23 09/03/24 Rx Plus Lancet) lancing device with lancets kit #1 ea 04/10/23 09/03/24 Rx (OneTouch Delica Plus Lancing Device kit) pen needle, diabetic 33 gauge x #10 ea 05/15/23 09/03/24 Rx 5/32 (Comfort EZ Pen [place]) empagliflozin 25 mg tablet See Rx Instructions .Route 12/13/23 09/13/24 Rx (Jardiance) .COMPLEX #90 tabs escitalopram oxalate 10 mg tablet See Rx Instructions .Route 12/13/23 09/13/24 Rx .COMPLEX #90 tabs simvastatin 10 mg tablet 10 mg PO DAILY #90 tabs 12/13/23 09/13/24 Rx pantoprazole 40 mg tablet,delayed 40 mg PO QAM #90 tabs 03/03/24 09/13/24 Rx release lisinopril 10 mg tablet 10 mg PO DAILY #90 tabs 03/11/24 09/13/24 Rx meloxicam 15 mg tablet 15 mg PO DAILY #90 tabs 06/10/24 09/13/24 Rx metformin 1,000 mg tablet 1,000 mg PO BID #180 tabs 06/10/24 09/13/24 Rx semaglutide 1 mg/dose (4 mg/3 mL) 1 mg (0.75 mL) subcut WEEKLY #3 mL 06/11/24 09/13/24 Rx subcutaneous pen injector Laboratory Tests 09/13/24 06:56 POC Capillary Glucose Pending Patient hx anesthesia problems: none Family hx anesthesia problems: none Results Review: All pre-operative results and documents have been reviewed as part of the pre-operative evaluation. [facility] Past Medical History Medical History HTN (hypertension) Rhinosinusitis Primary osteoarthritis JORGE (obstructive sleep apnea) HLD (hyperlipidemia) Type 2 diabetes mellitus without complications Depression Surgical History Surgical History History of tonsillectomy History of sinus surgery Family History Family History Mother Diabetes mellitus Sibling Diabetes mellitus Family history of cardiovascular disease Carcinoma of colon Father Family history of cardiovascular disease Social History Social History Social History: Single Smoking status: Never smoker Tobacco type: cigarettes Second hand tobacco smoke exposure: No Alcohol intake: current Drinks per week: 10 Alcohol use details: BEER/WINE Substance use: never Substance use type: does not use Living arrangements: alone Occupation/Education: occupation Gender identity (if verbalized by the patient): Male Spiritual care concerns: No Anes - Eval Final PreProcedure Day of Procedure 09/13/24 07:07 Patient weight: normal Heart: regular rate and rhythm Lungs: normal air movement Airway: Mallampati scale class II Neurological: alert and oriented Last oral intake: >/= 8 hours ASA classification: III Emergent: no Anesthetic plan: proceed Anesthesia type and monitoring: general GIVS and standard monitoring Results Review: All pre-operative results and documents have been reviewed as part of the pre-operative evaluation. HTN, hyperlipidemia, JORGE on CPAP setting 4.5, DM fsbs 160. Pt w sore R shoulder at this time. Overall active, no cp or sob. Informed Consent: The patient's anesthetic plan and its attendant risks and benefits were discussed with the patient/family/POA. Questions were solicited and answers provided to the satisfaction of the patient/family/POA.
--- NOTE | 2024-09-13 07:19 | P.HP_ITS ---
H&P: HPI History of Present Illness Date/Time: 09/13/24 07:19 Chief Complaint: family history of colorectal cancer. Narrative: This patient is brother has recently been diagnosed with colorectal cancer at age 73. The patient had a colonoscopy for screening purposes 8 years ago. Reportedly, there were no polyps. The patient is asymptomatic from a GI standpoint. Review of Systems Review of Systems: All systems reviewed & are unremarkable except as noted in HPI and below PMFSH Past Medical History Medical History HTN (hypertension) Rhinosinusitis Primary osteoarthritis JORGE (obstructive sleep apnea) HLD (hyperlipidemia) Type 2 diabetes mellitus without complications Depression Surgical History Surgical History History of tonsillectomy History of sinus surgery Family History Family History Mother Diabetes mellitus Sibling Diabetes mellitus Family history of cardiovascular disease Carcinoma of colon Father Family history of cardiovascular disease Social History Social History Social History: Single Smoking status: Never smoker Tobacco type: cigarettes Second hand tobacco smoke exposure: No Alcohol intake: current Drinks per week: 10 Alcohol use details: BEER/WINE Substance use: never Substance use type: does not use Living arrangements: alone Occupation/Education: occupation Gender identity (if verbalized by the patient): Male Spiritual care concerns: No Meds Home Medications and Allergies Home Medications ?Medication ?Instructions ?Recorded ?Confirmed ?Type aspirin 81 mg tablet,delayed 162 mg PO DAILY 07/11/19 09/13/24 History release blood sugar diagnostic (Contour #100 ea 08/11/20 09/03/24 Rx Next Test Strips) blood-glucose meter (Contour Next #1 ea 08/11/20 09/03/24 Rx Meter) ferrous sulfate 325 mg (65 mg 325 mg PO DAILY 05/16/22 09/13/24 History iron) tablet lancets 33 gauge (Greenextica #100 ea 04/05/23 09/03/24 Rx Plus Lancet) lancing device with lancets kit #1 ea 04/10/23 09/03/24 Rx (OneTouch Delica Plus Lancing Device kit) pen needle, diabetic 33 gauge x #10 ea 05/15/23 09/03/24 Rx 5/32 (Comfort EZ Pen [place]) empagliflozin 25 mg tablet See Rx Instructions .Route 12/13/23 09/13/24 Rx (Jardiance) .COMPLEX #90 tabs escitalopram oxalate 10 mg tablet See Rx Instructions .Route 12/13/23 09/13/24 Rx .COMPLEX #90 tabs simvastatin 10 mg tablet 10 mg PO DAILY #90 tabs 12/13/23 09/13/24 Rx pantoprazole 40 mg tablet,delayed 40 mg PO QAM #90 tabs 03/03/24 09/13/24 Rx release lisinopril 10 mg tablet 10 mg PO DAILY #90 tabs 03/11/24 09/13/24 Rx meloxicam 15 mg tablet 15 mg PO DAILY #90 tabs 06/10/24 09/13/24 Rx metformin 1,000 mg tablet 1,000 mg PO BID #180 tabs 06/10/24 09/13/24 Rx semaglutide 1 mg/dose (4 mg/3 mL) 1 mg (0.75 mL) subcut WEEKLY #3 mL 06/11/24 09/13/24 Rx subcutaneous pen injector Allergies Allergy/AdvReac Type Severity Reaction Status Date / Time Penicillins Allergy Intermediate hives Verified 09/13/24 06:46 Vital Signs Vital Signs - 24 hr 09/13/24 06:50 Temperature 96.5 F L Pulse Rate 72 Respiratory Rate 20 Blood Pressure 125/98 H Pulse Oximetry 100 Oxygen Delivery Room Air Exam Const: General: cooperative and healthy appearing Resp: Effort & Inspection: normal respiratory effort and able to speak in complete sentences Auscultation: clear to auscultation bilaterally Cardio: Rate: regular rate Rhythm: regular rhythm GI: Inspection: normal to inspection GI Palp: No No hepatosplenomegaly present Auscultation: normal bowel sounds Rectal Exam: deferred Skin: General skin exam: normal color Psych: Appearance: grossly normal Mental Status: mental status grossly normal Assessment and Plan Assessment and plan (1) Family history of colorectal cancer: Code(s): Z80.0 - Family history of malignant neoplasm of digestive organs Status: Acute Assessment and Plan: The patient is deemed a good candidate for the procedure. Consent signed. Will proceed.
[2024-09-13 08:27] VITALS: BP 124/80; PULSE 78; RESP 20; O2SAT 100
[2024-09-13 08:37] VITALS: BP 140/84; PULSE 76; RESP 20; O2SAT 100
[2024-09-13 08:47] VITALS: BP 143/89; PULSE 60; RESP 14; O2SAT 100
== END 2024-09-13 08:57 | disposition home or self-care (01) ==
PROVIDERS: PCP Family Medicine; Visit Provider Internal Medicine Gastroenterology
PROC: 0DJD8ZZ Inspection of Lower Intestinal Tract, Via Natural or Artificial Opening Endoscopic (ICD-10-PCS; CPT 45378; principal; 2024-09-13 08:00)
DX: Z12.11 Encounter for screening for malignant neoplasm of colon (principal); D12.2 Benign neoplasm of ascending colon; E11.9 Type 2 diabetes mellitus without complications; Z79.85 Long-term (current) use of injectable non-insulin antidiabetic drugs; Z79.84 Long term (current) use of oral hypoglycemic drugs
CPT/HCPCS: 45385; 82948; 88305; J2003; J2704; J7120

== ENCOUNTER 2025-03-03 08:59 | Outpatient (CLI) | payer BC, SELFPAY ==
--- OUTSIDE RECORDS SUMMARY | 2025-03-03 09:09 | XMS_ITS | Referral Summary ---
Author Organization [facility] [address] Address [address] [place] [address] Care Team Providers Care Feed Handler Name Role Phone Blayne Monae MD Primary Care Provider Allergies Active Allergy Reactions Criticality Noted Date Comments Penicillins Social History Tobacco Use Types Packs/Day Years Used Date Smoking Tobacco: Never Assessed Personal Safety Answer Date Recorded Getting School Help Needed Not on file 11/03 Sex and Gender Information Value Date Recorded Sex Assigned at Not on file Legal Sex Male 8:24 AM [employer]UL [employer] Gender Identity Not on file Sexual Orientation Not on file Plan of Treatment Not on file Insurance [facility] CHOICE PLUS [facility] HMO/PPO Address[facility] [address] [place] [address] Care Teams Feed Handler Relationship Specialty Start Date End Date Blayne Monae MD [address] [facility] [address] [facility] [address] [place] [address] PCP - General Family Medicine 06/03/19
--- OUTSIDE RECORDS SUMMARY | 2025-03-03 09:09 | XMS_ITS | Data Portability ---
Author Organization [place] - [facility], Parisa Phillip Address [address] [place] [address] Care Team Providers Care Pasteurizer Name Role Phone HUMA MALONE Primary Care [...] ( If complications: you can enter here) Dressing applied to the site(s) and pressure held. No signs or symptoms of venipuncture complications observed. Lab results sent to . Patient left ambulatory with no complaints of pain or discomfort voiced. I mar one tiger stripe tube [email or web address] Not available 03/21/2024 10:44:02 05/30/2024 05/30/2024 Gave the influenza vaccine today on patient left deltoid. Patient left with no complications. [email or web address] Not available 05/30/2024 15:12:35 Plan of Treatment Reminders Order Date Submit Date Provider Last Modified By Organization Details Last Modified Time Details Appointments None recorded. Lab HbA1c (hemoglobin A1c), blood 2023 024 [email or web address] [address], [address], 4 10:55:35 lipid panel, blood 2023 024 [place] [address] [address], [address], 4 10:55:36 glucose, QN, fingerstick , blood (glucometer ) 2023 024 [place] [address] [address], [address], 4 10:55:37 cotinine, quantitativ e, unspecified specimen 2023 024 [place] [address] [address], [address], 4 10:55:38 lipid panel, serum 2023 024 [place] [facility], [address] [place] [address], [place], [address], 4 10:08:48 Referral None recorded. Procedures None recorded. [...] mg/dL 100-19 9 normal Not Available [facility] ([facility]) [address] [facility], [place], [address], 03/22/2024 10:08:47 03/21/20 24 03/22/2024 LIPID PANEL AND CHOL/ HDL RATIO triglyceride s 71 mg/dL 0-149 normal Not Available [facility] ([facility]) [address] [facility], [place], [address], 03/22/2024 10:08:47 03/21/20 24 03/22/2024 LIPID PANEL AND CHOL/ HDL RATIO HDL cholesterol 71 mg/dL >39 normal Not Available [facility] ([facility]) [address] [facility], [place], [address], 03/22/2024 10:08:47 03/21/20 24 03/22/2024 LIPID PANEL AND CHOL/ HDL RATIO VLDL cholesterol booker 14 mg/dL 5-40 Not Available [facility] ([facility]) [address] [facility], [place], [address], 03/22/2024 10:08:47 03/21/20 24 03/22/2024 LIPID PANEL AND CHOL/ HDL RATIO LDL chol calc ([facility]) 81 mg/dL 0-99 Not Available [facility] ([facility]) [address] [facility], [place], [address], 03/22/2024 10:08:47 03/21/20 24 03/22/2024 LIPID PANEL AND CHOL/ HDL RATIO LDL calc comment: PEDIATRIC CNS Not Available [facility] ([facility]) [address] [facility], [place], [address], 03/22/2024 10:08:47 03/21/20 24 03/22/2024 LIPID PANEL AND CHOL/ HDL RATIO T. chol/HDL ratio 2.3 ratio 0.0-5. 0 T. Chol/ HDL Ratio Men Women 1/2 Avg.R isk 3.4 3.3 Avg.R isk 5.0 4.4 2X Avg.R isk 9.6 7.1 3X Avg.R isk 23.4 11.0 Not Available [facility] ([facility]) [address] [place], [address], 03/22/2024 10:08:47 03/21/20 24 03/21/2024 HbA1c (hemo globi n A1c), blood HbA1c 6.5 Not Available [address], [address], 03/21/2024 08:28:01 03/21/20 24 03/21/2024 lipid panel , blood total cholesterol >400 mg/dL <200 Not Available [address], [address], 03/21/2024 08:28:01 03/21/20 24 03/21/2024 lipid panel , blood LDL mg/dL <100 Not Available [address], [address], 03/21/2024 08:28:01 03/21/20 24 03/21/2024 lipid panel , blood HDL 119 mg/dL >50 Not Available [address], [address], 03/21/2024 08:28:01 03/21/20 24 03/21/2024 lipid panel , blood triglyceride s 239 mg/dL <150 Not Available [address], [address], 03/21/2024 08:28:01 03/21/20 24 03/21/2024 lipid panel , blood TC/HDL ratio <4.5 Not Available [address], [address], 03/21/2024 08:28:01 03/21/20 24 03/21/2024 gluco se, QN, finge rstic k, blood (gluc omete r) blood glucose (fasting) 149 md/dL 65-99 Not Available [address], [address], 03/21/2024 08:28:01 03/21/20 24 03/21/2024 gluco se, QN, finge rstic k, blood (gluc omete r) blood glucose (non-fasting ) mg/dL <140 Not Available [facility] - [address], [address], 03/21/2024 08:28:01 03/21/20 24 03/21/2024 cotin ine, quant itati ve, unspe cifie d speci men Urine Pass Not Available [facility] [address], [address], 03/21/2024 08:28:01 Result Notes None recorded. Problems Name Problem SNOMED Code Status Onset Date Resolution Date Notes Provider Name and Address Organization Details Recorded Time Contusio n of eye 746659494 Active 2022 CHRISTIANO JORGENSEN NP [address], [facility] [place], [address] , [place] - [facility] 3 16:22:28 Contusio n of eye 739726585 Active 2022 CHRISTIANO JORGENSEN NP [address], [facility] [place], [address] , [place] - [facility] 3 16:30:13 Hyperlip idemia 23795937 Active 2015 Hyperlip idemia; PROBABIL ITY: 0 Confir mation: Confirme carissa Doradoa tedDispl ay: Hyperlip idemia C lassific ation: Medical Lifecycl eDateTim e: 19:18:54 +00:00 Not Available [facility] 4 04:26:26 Blephari tis of left eyelid 39302906308 9102 Completed 202110/03/2023 Blephari tis of left eyelid; PROBABIL ITY: 0 SENSIT IVITY: 0.0 Conf irmation : Confirme d Annota tedDispl ay: Blephari tis of left eye Clas adriannati on: Medical Not Available [facility] 4 04:26:27 Requires varicell a vaccinat ion 532080897 Active 2022 Requires varicell a vaccinat ion; PROBABIL ITY: 0 SENSIT IVITY: 0.0 Conf irmation : Isaiah ferrer Annota tedDispl ay: Need for shingles vaccine Classifi cation: Medical Lifecycl eDateTim e: 20:32:00 +00:00 Not Available [facility] 4 04:26:27 Sleep apnea 79607295 Active 2015 Sleep apnea... ..; PROBABIL ITY: 0 Confir mation: Confirme d Annota tedDispl ay: Sleep apnea Cl assifica tion: Medical Lifecycl eDateTim e: 17:20:18 +00:00 Not Available [facility] 4 04:26:27 Seasonal allergic rhinitis 848480952 Active 2015 Seasonal allergie s.....; PROBABIL ITY: 0 Confir mation: Confirme d Annota tedDispl ay: Seasonal allergie s Classi fication : Medical Lifecycl eDateTim e: 19:18:34 +00:00 Not Available [facility] 4 04:26:27 Hyperten sive disorder 16025240 Active 2017 Hyperten sive disorder ; PROBABIL ITY: 0 Confir mation: Confirme d Annota tedDispl ay: Hyperten jm Cla ssificat ion: Medical Lifecycl eDateTim e: 19:23:17 +00:00 Not Available [facility] 4 04:26:27 Arthriti s 7921451 Active 2015 Arthriti s; PROBABIL ITY: 0 Confir mation: Confirme d Annota tedDispl ay: Arthriti s Classi fication : Medical Lifecycl eDateTim e: 19:19:42 +00:00 Not Available [facility] 4 04:26:27 Type 2 diabetes mellitus 21387430 Active 2015 Diabetes mellitus type 2; PROBABIL ITY: 0 Confir mation: Confirme d Annota tedDispl ay: Diabetes mellitus type 2 Classi fication : Medical Lifecycl eDateTim e: 17:19:48 +00:00 Not Available [facility] 4 04:26:27 Problem Notes None recorded. Medical Equipment None Reported. Allergies Allergen ID Allergen Name Allergen Category Reaction Reaction Severity Criticality Documentation Date Start Date Code Code System Note Provider Name and Address Organization Details Recorded Time 344615 Product containin g penicilli n (product) medicatio n hives Not available low 06/13/2023 25947 8001 SNOMED [place] Jolene null, [place] - [facility] 3 14:31:30 Medications Name Sig Start Date Stop Date Status Note LastModified by Organization Details LastModified Time Lidocaine Viscous 2 % mucosal solution 01/16 completed StopType : Physicia n Stop Mac gIdentif icationN umber: [id number] T otalRefi lls: 0 Consta ntIndica tor: [...] Physicia n Stop Mac gIdentif icationN umber: [id number] S cheduled PRN: No Total Refills: 0 Consta ntIndica tor: Yes CSAS chedule: 0.0 acti ve_statu s_dt_tm: 0 11:26:51 AM Not Available Not Available Not Available acyclovir 400 mg tablet 2021 active Duration : 7 Durati onUnit: day(s) S topType: Soft Stop Mac gIdentif icationN umber: [id number] S cheduled PRN: No Total Refills: 0 [...] Physicia n Stop Mac gIdentif icationN umber: [id number] S cheduled PRN: No Total Refills: 0 Consta ntIndica tor: Yes CSAS chedule: 0.0 acti ve_statu s_dt_tm: 02/20/2020 11:19:15 AM Not Available Not Available Not Available Bactroban 2 % topical ointment 04/07 completed StopType : Physicia n Stop Mac gIdentif icationN umber: [id number] S cheduled PRN: No Total Refills: 0 Consta ntIndica tor: Yes acti ve_statu s_dt_tm: 03/28/2016 12:42:13 PM Not Available Not Available Not Available pantopraz ole 40 mg tablet,de layed release active Not Available Not Available Not Available simvastat in 20 mg tablet 10/13 completed Disconti nueDate: 3 2:21:00 PM StopT ype: Physicia n Stop Mac gIdentif icationN umber: [id number] T otalRefi lls: 0 Cancel Reason: Duplicat e Order Co nstantIn dicator: Yes CSAS chedule: 0.0 acti ve_statu s_dt_tm: 11/23/2015 12:19:15 PM Not Available Not Available Not Available erythromy shawn 5 mg/gram (0.5 %) eye ointment 02/24 completed Duration : 5 Durati onUnit: days Sto pType: Physicia n Stop Mac gIdentif icationN umber: [id number] S cheduled PRN: No Total Refills: 0 Consta ntIndica tor: Yes CSAS chedule: 0.0 acti ve_statu s_dt_tm: 02/20/2020 11:18:26 AM Not Available Not Available Not Available metformin 1,000 mg tablet active Not Available Not Available Not Available Cipro 500 mg tablet 01/14 completed Duration : 7 Durati onUnit: day(s) S topType: Physicia n Stop Mac gIdentif icationN umber: [id number] S cheduled PRN: No Total Refills: 0 [...] Physicia n Stop Mac gIdentif icationN umber: [id number] S cheduled PRN: Yes Tota lRefills : 0 Consta ntIndica tor: No activ e_status _dt_tm: 11/23/2015 12:44:46 PM Not Available Not Available Not Available escitalop luly 10 mg tablet active Not Available Not Available Not Available meloxicam 10/13 completed Disconti nueDate: 3 2:20:00 PM StopT ype: Physicia n Stop Mac gIdentif icationN umber: [id number] T otalRefi lls: 0 Cancel Reason: Duplicat e Order Co nstantIn dicator: Yes CSAS chedule: 0.0 acti ve_statu s_dt_tm: 9 2:37:38 PM Not Available Not Available Not Available aspirin 10/13 completed StopType : Physicia n Stop Mac gIdentif icationN umber: [id number] T otalRefi lls: 0 Consta ntIndica tor: Yes CSAS chedule: 0.0 acti ve_statu s_dt_tm: 9 2:38:06 PM Not Available Not Available Not Available [facility] [facility] 07/17 completed Disconti nueDate: 07/17/20 18 1:24:00 PM StopT ype: Physicia n Stop Mac gIdentif icationN umber: [id number] T otalRefi lls: 0 Cancel Reason: Physicia n Request Constant Indicato r: Yes CSAS chedule: 0.0 acti ve_statu s_dt_tm: 11/23/2015 12:19:15 PM Not Available Not Available Not Available Fluzone 05/29 completed DrugForm : Susp Sto pType: Physicia n Stop Mac gIdentif icationN umber: [id number] S cheduled PRN: No NextD oseDate: 7 1:23:00 PM Const antIndic ator: No activ e_status _dt_tm: 1:23:57 PM Not Available Not Available Not Available Victoza 07/17 completed Disconti nueDate: 07/17/20 18 1:20:00 PM StopT ype: Physicia n Stop Mac gIdentif icationN umber: [id number] T otalRefi lls: 0 Cancel Reason: Physicia n Request Constant Indicato r: Yes CSAS chedule: 0.0 acti ve_statu s_dt_tm: 11/23/2015 12:19:15 PM Not Available Not Available Not Available Helen Chewable Low Dose Aspirin 81 mg tablet 2022 active StopType : Soft Stop Mac gIdentif icationN umber: [id number] T otalRefi lls: 0 Consta ntIndica tor: Yes CSAS chedule: 0.0 acti ve_statu s_dt_tm: 3 2:23:39 PM Not Available Not Available Not Available Iron 100 Plus 2022 active StopType : Soft Stop Mac gIdentif icationN umber: [id number] T otalRefi lls: 0 Consta ntIndica tor: Yes CSAS chedule: 0.0 acti ve_statu s_dt_tm: 3 2:23:39 PM Not Available Not Available Not Available Jardiance 25 mg tablet active Not Available Not Available Not Available Afluria 9114-618105/26 completed StopType : Physicia n Stop Mac Rajinderdentif icationN umber: [id number] N extDoseD ate: 6 3:00:00 PM Const antIndic ator: No activ e_status _dt_tm: 6 2:45:59 PM Not Available Not Available Not Available Shingrix (PF) 10/13 completed StopType : Physicia n Stop Mac gIdentif icationN umber: [id number] N extDoseD ate: 3 2:33:00 PM Total Refills: 0 Consta ntIndica tor: No CSASc hedule: 0.0 acti ve_statu s_dt_tm: 3 2:33:12 PM Not Available Not Available Not Available Fluzone Quad (PF) 60 mcg (15 mcg x 4)/0.5 mL IM suspensio n 06/27 completed StopType : Physicia n Stop Mac gIdentif icationN umber: [id number] N extDoseD ate: 8 1:58:00 PM Const [...] Physicia n Stop Mac gIdentif icationN umber: [id number] N extDoseD ate: 06/04/20 19 2:34:00 PM Const antIndic ator: No activ e_status _dt_tm: 06/05/20 19 2:36:09 PM Not Available Not Available Not Available Fluzone Quad (PF) 06/28 completed StopType : Physicia n Stop Mac Yolanda fitzpatricktionN umber: [id number] S cheduled PRN: No NextD oseDate: 2 11:49:00 AM Const antIndic ator: No activ e_status _dt_tm: 2 11:49:31 AM Not Available Not Available Not Available Ozempic 0.25 mg or 0.5 mg (2 mg/3 mL) subcutane ous pen injector INJECT 0.25 MG UNDER THE SKIN WEEKLY active Not Available Not Available No t Available Vitals Date Recorded Body height Body mass index (BMI) Body weight Heart rate Body temperature Oxygen saturation Oxygen saturation in Arterial blood by Pulse oximetry Systolic And Diastolic Provider Name and Address Organization Details Last Updated DateTime 4 177.8 cm 26.3 kg/m2 64404.4 g 65 /min 98.3 [degF] 99 % 99 % 124/80 mm[Hg] Eliud Cook [place] [facility] 4 10:07:59 Date Recorded Body height Body mass index (BMI) Body weight Heart rate Oxygen saturation Oxygen saturation in Arterial blood by Pulse oximetry Body temperature Systolic And Diastolic Provider Name and Address Organization Details Last Updated DateTime 3 177.8 cm 25.7 kg/m2 40115.0 3 g 86 /min 98 % 98 % 98.6 [degF] 120/79 mm[Hg] Rob Fernández [place] - [facility] 3 14:34:59 Social History Question Answer Notes LastModified by Organizat ion Details LastModified Time Tobacco Smoking Status Never Smoker Eliud jackson [place] - [facility] 03/21/2024 10:09:44 In The 14 Days Before Symptom Onset, Have You Had Close Contact With A Laboratory-confirm ed COVID-19 While That Case Was Ill? No [email or web address] Information n ot available 03/21/2024 In The 14 Days Before Symptom Onset, Have You Had Close Contact With A Person Who Is Under Investigation For COVID-19 While That Person Was Ill? No [email or web address] Information not available 03/21/2024 Have You Been To An Area Known To Be High Risk For COVID-19? No [email or web address] Information not available 03/21/2024 Cigar Smoking No [email or web address] Information not available 03/21/2024 Sex: Unknown Functional Status None recorded. Mental Status None recorded. Family History Nothing Reported Notes:Brother: Heart disease Father: Heart disease, Hypercholesterolemia Mother: Diabetes.... Medical History Condition Response Coronary Artery Disease N Gout N Macular Degeneration N Atrial Fibrillation N Heart Valve Disorder N Kidney Stones N Hyperthyroidism N MRSA N COPD N Depression N Migraine Headaches N Retinopathy Diabetic N Hodgkin's Lymphoma N Positive TB Skin Test N Obstructive Sleep Apnea N Sinus Infections N Infertility N Carpal Tunnel N Lupus (SLE) N DVT (Blood Clot in legs) N Rheumatoid Arthritis N Fibromyalgia N Incontinence, stress N Anxiety N Venous Insufficiency (Swelling of Legs & Ankles) N Anemia, other N Vit D Deficiency N Peptic Ulcer Disease N Menstrual Cycle- Heavy N Irritable bowel N Blood in urine N GERD (reflux) N Compression fracture of spine (vertebral ) N Carotid Artery Disease N Tuberculosis N AIDS/HIV N Hip fracture N Anemia, iron deficient N Asthma N Blood clotting disorder N Diabetes Type II N Peripheral Vascular Disease N Myocardial Infarction with Stent (Heart Attack) N Abnormal Pap N Diabetes Type I N Hepatitis N Cirrhosis N Seizure Disorder N Stroke (CVA) N Colon Cancer N Leukemia N Breast Cancer N Erectile Dysfunction (ED) N Myocardial Infarction w/o Stent (Heart A ttack) N Raynauds Disease N Lung Cancer N Glaucoma N Hypothyroidism N [place] N Bipolar N Hypertension (High Blood Pressure) [...] N Non-Hodgkin's Lymphoma N Ovarian Cancer N Lumbar Spine Disease N Abnormal Mammogram N Cervical Spine Disease N Congestive Heart Failure (CHF) N Eczema N Rectal Bleeding N Dementia N Diverticulitis N Bladder Cancer N Psoriasis N Gall Stones N Thrombocytopenia (low platelets) N Allergic Rhinitis (seasonal allergies) N Immunizations Vaccine Type Date Status Note Provider Greg jain and Address Organization Details Recorded Time Tdap 05/21/2020 completed Rob jackson, [place] - [facility] 06/13/2023 14:40:15 Influenza, split virus, trivalent, PF 05/30/2024 completed Eliud Cook re[place], [place] - [facility] 05/30/2024 15:12:19 Past Encounters Encounter ID Performer Location Encounter Start Date Encounter Closed Date Diagnosis/Indication Diagnosis SNOMED-CT Code Diagnosis ICD10 Code Diagnosis Note [id number] CHRISTIANO JORGENSEN NP [address] [address] 06/13/2023 14:26:20 06/13/2023 16:46:32 Contusion of eye 900534614 S05.12XA Area cleansed with NS and JOSE ANGEL applied. Encouraged to keep the area clean and dry. Apply JOSE ANGEL BID. Ice pack given to pt and encouraged to use ice pack for 10 minutes 4-5 times per day. F/u if symptoms worsen or signs of infection which were reviewed with pt. Pt verbalized understand ing. [id number] Arsenio Sexton DO [address] [address] 03/21/2024 09:57:13 03/21/2024 11:18:58 Adult health examination 050375478 Z00.00 Urine cotinine is negative. A1c is 6.7%. POC lipid panel reveals TC >400 with HDL of 119 and triglyceri nicole of 239. Last year TC was 204 with normal triglyceri nicole and HDL. Questionin g POC results. Serum lipid panel ordered. Will call him with the results and complete [facility] forms at that time. 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 Encouraged to f/u for colon cancer screening. Pt verbalized understand ing. Type 2 ryan betes mellitus 41347126 E11.9 Encouraged healthy well balanced diet low in sugar and simple carbs. F/u with PCP for ongoing management . Pt verbalized understand ing. [id number] Arsenio Sexton DO [address] [address] 05/30/2024 14:43:16 05/30/2024 15:13:20 Administration of influenza vaccine 52775620 Z23 Health Concerns Section Related Observation LastModified by Organization Detai ls LastModified Time None Recorded Concern Status LastModified by Organization Details LastModified Time None Recorded Advance Directives Directive None Recorded Payers Insurance Date Sequence Insurance Name Policy Number Policy Shaffer Covered Member ID Shaffer Member ID Guarantor Name 06/21/2023 1 [employer] - [employer] - ALL PLANS (PPO) [id number] Florin Cole UNKNOWN Florin Cole 03/18/2024 1 [employer] - [employer] - ALL PLANS (PPO) [id number] Florin Cole UNKNOWN Florin Cole 03/22/2024 1 [employer] - [employer] - ALL PLANS (PPO) [id number] Florin Cole UNKNOWN Florin Cole 04/05/2024 1 [employer] - [employer] - ALL PLANS (PPO) [id number] Florin Cole UNKNOWN Florin Cole 06/03/2024 1 [employer] - [employer] - ALL PLANS (PPO) [id number] Florin Cole UNKNOWN Florin Cole 11/09/2024 1 [employer] - [employer] - ALL PLANS (PPO) [id number] Florin Cole UNKNOWN Florin Cole 11/09/2024 1 [employer] - [employer] - ALL PLANS (PPO) [id number] Florin Cole UNKNOWN Florin Cole Notes Date Note Type Note Provider Name and Address Organization Details Recorded Time 06/13/2023 text/html Pt presents to [facility] due to facial/left eye orbit injury 2 [...] years ago. CHRISTIANO JORGENSEN NP [address], [place], [address], [place] [facility] 06/13/2023 16:45:58 03/21/2024 text/html Pt with a hx of diabetes and HTN presents to [facility] for [facility] screening. Takes Simvastatin for his [...] pneumonia vaccine. CHRISTIANO JORGENSEN NP [address], [facility] [place], [address], [place] [facility] 03/21/2024 11:00:36
--- OUTSIDE RECORDS SUMMARY | 2025-03-03 09:09 | XMS_ITS | Clinical Summary ---
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
--- OUTSIDE RECORDS SUMMARY | 2025-03-03 09:09 | XMS_ITS | Clinical Summary ---
Author Organization [facility] Address [address] [place] [address] Care Team Providers Care Bending Frame Operator Name Role Phone Unavailable Primary Care Provider Unavailabl e Allergies Active Allergy Reactions Criticality Noted Date Comments Penicillins Hives High 06/28/2010 Medications metFORMIN (GLUCOPHAGE) 1,000 mg Oral tablet Take 1,000 mg by mouth 2 times daily with meals. Active simvastatin (ZOCOR) 20 mg Oral tablet Take 20 mg by mouth Daily LATE. Active trimethoprim-sul famethoxazole (BACTRIM DS) 800-160 mg Oral tablet Take 1 Tab by mouth every 12 hours. 18 Tab 0 07/03/2010 Active oxyCODONE-acetam inophen (PERCOCET) 5-325 mg Oral tablet Take 2 Tabs by mouth every 4 hours as needed (For Pain Scale 4-6). 70 Tab 0 07/03/2010 Active docusate sodium (COLACE) 100 mg Oral capsule Take 1 Cap by mouth 2 times daily. 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 Gender Identity Not on file Sexual Orientation Not on file Last Filed Vital Signs Vital Sign Reading Time Taken Comments Blood Pressure 116/78 07/03/2010 8:21 AM SERVICE MECHANIC Pulse 60 07/03/2010 8:21 AM SERVICE MECHANIC Temperature 36.7 C (98.1 F) 07/03/2010 8:21 AM SERVICE MECHANIC Respiratory Rate 16 07/03/2010 8:21 AM SERVICE MECHANIC Oxygen Saturation 97% 07/03/2010 8:21 AM SERVICE MECHANIC Inhaled Oxygen Concentration - - Weight 95.7 kg (211 lb) 06/30/2010 4:00 PM SERVICE MECHANIC Height 177.8 cm (5' 10) 06/30/2010 4:00 PM SERVICE MECHANIC Body Mass Index 30.28 06/30/2010 4:00 PM SERVICE MECHANIC Plan of Treatment Health Maintenance Due Date Last Done Comments DTAP/TDAP/TD VACCINES (1 - Tdap) 1980 COLORECTAL SCREENING 2006 Colorectal Cancer Screening 2006 FIT-DNA Q 3 years 2006 FIT/FOBT Q 1 year 2006 Flex Sig/CT Colonography Q 5 years 2006 ZOSTER VACCINE (1 of 2) 2011 INFLUENZA VACCINE (#1) 2025 RSV VACCINE (60+ or ) (1 - 1-dose 75+ series) 2036 Insurance [facility] [employer] PPO Advance Directives For more information, please contact: [phone] * Full Code (Latest Code Status on File) Date Activated Date Inactivated Comments 07/02/2010 11:52 AM 07/03/2010 10:44 AM * Full Code Date Activated Date Inactivated Comments 07/02/2010 7:48 AM 07/02/2010 11:52 AM
--- OUTSIDE RECORDS SUMMARY | 2025-03-03 09:09 | XMS_ITS | Clinical Summary ---
Author Organization [facility] Address [address] [place] [address] Care Team Providers Care Hair Machine Operator Name Role Phone Blayne Monae MD Primary Care Provider [phone] Source Comments [facility],non-owned Affiliates and Associated Physician Practices is amultiple site organization consisting of ambulatory clinics and hospital sitesin [place], [place], [place] and [place]. This disclosure is being madepursuant to the Care Everywhere program and may not contain all information available regarding this patient. Last updated 18.[facility] Navmii Allergies Active Allergy Reactions Criticality Noted Date Comments Penicillins Skin Reactions Medium 10/10/2012 Medications * Be aware that medications may not be up to date on this document. Alwaysverify current medications with the patient. JARDIANCE 10 MG tablet Take 1 tablet by mouth once daily 10/26/2020 Active escitalopram (LEXAPRO) 10 MG tablet Take 1 tablet by mouth once daily 10/27/2020 Active meloxicam (MOBIC) 15 MG tablet Take 1 tablet by mouth once daily 07/10/2020 Active metFORMIN (GLUCOPHAGE) 1000 MG tablet Take 1,000 mg by mouth 2 times daily Active simvastatin (ZOCOR) 10 MG tablet Take 1 tablet by mouth once daily 10/26/2020 Active ASPIRIN ADULT PO Take 162 mg by mouth once daily 2 baby aspirin Active Active Problems Problem Noted Date Diagnosed Date Nasal valve collapse 01/12/2021 Obstructive sleep apnea 10/10/2012 Deviated nasal septum 10/10/2012 Allergic rhinitis 10/10/2012 Social History Tobacco Use Types Packs/Day Years Used Date Smoking Tobacco: Former Smokeless Tobacco: Never Sex and Gender Information Value Date Recorded Sex Assigned at Not on file 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 Gender Identity Not on file Sexual Orientation Not on file Last Filed Vital Signs Vital Sign Reading Time Taken Comments Blood Pressure 143/89 01/12/2021 7:51 AM CDT Pulse 66 01/12/2021 7:51 AM CDT Temperature 36.4 C (97.5 F) 01/12/2021 7:51 AM CDT Respiratory Rate 16 01/12/2021 7:51 AM CDT Oxygen Saturation - - Inhaled Oxygen Concentration - - Weight 82.6 kg (182 lb) 01/12/2021 7:51 AM CDT Height 177.8 cm (5' 10) 01/12/2021 7:51 AM CDT Body Mass Index 26.11 01/12/2021 7:51 AM CDT Plan of Treatment Health Maintenance Due Date Last Done Comments COLOGUARD (AGES 45-75) - COL ON CA SCREENING 1961 COLON MONITORING 1961 COLONOSCOPY - COLON CA SCREENING 1961 CT COLONOGRAPHY - COLON CA SCREENING 1961 Colorectal Cancer Screening 1961 FIT - COLON CA SCREENING 1961 FLEX SIG - COLON CA SCREENING 1961 HIV SCREENING 1976 HEPATITIS C SCREENING 07/11/1979 DTAP/TDAP/TD VACCINES (1 - Tdap) 1980 PNEUMOCOCCAL VACCINE 50+ (1 of 1 - PCV) 2011 ZOSTER VACCINE (1 of 2) 2011 SCREENING FOR DIABETES 01/12/2021 0, 07/02/2010 COVID-19 VACCINE (1 - 2023-2 5 season) 2024 DEPRESSION SCREENING 08/21/2024 INFLUENZA VACCINE (#1) 2025 Respiratory Syncytial Virus (RSV) Vaccine Pt: or over 60 yrs (1 - 1-dose 75+ series) 2036 HEPATITIS B VACCINE Aged Out No longe r eligible based on patient's age to complete this topic HIB VACCINE Aged Out No longer eligi ble based on patient's age to complete this topic HPV VACCINE Aged Out No longer eligi ble based on patient's age to complete this topic MENINGOCOCCAL (Group B) VACCINE SHARED DECISION-MAKING Aged Out No longer eligible based on patient's age to complete this topic MENINGOCOCCAL GROUPS A/C/Y/W VACCINE Aged Out No longer eligible b ased on patient's age to complete this topic Insurance Care Teams Hair Machine Operator Relationship Specialty Start Date End Date Blayne Monae MD [address] [place] [address] PCP - General 06/09/22
[2025-03-03 09:36] LABS: Hematocrit 40.9 % (42.0-52.0); Hemoglobin 14.4 g/dL (14.0-18.0)
[2025-03-03 10:03] LABS: Anion Gap 7 mmol/L (4-12); Blood Urea Nitrogen 18 mg/dL (9-20); Calcium 9.0 mg/dL (8.4-10.2); Carbon Dioxide 27 mmol/L (22-30); Chloride 103 mmol/L (98-107); Estimated Glomerular Filt Rate > 60; Glucose 106 mg/dL (65-110); Potassium 4.5 mmol/L (3.4-5.0); Sodium 137 mmol/L (137-145)
== END 2025-03-03 09:00 | disposition home or self-care (01) ==
LOC: ANHSURGERY 09:03
PROVIDERS: Anesthesiology; PCP Family Medicine; Visit Provider Plastic Surgery
DX: D64.9 Anemia, unspecified (principal); E11.9 Type 2 diabetes mellitus without complications
CPT/HCPCS: 36415; 80048; 85014; 85018

== ENCOUNTER 2025-03-05 01:05 | Day surgery (SDC) | payer BC, SELFPAY ==
[2024-12-04 13:36] VITALS: BMI 24.1
--- NOTE | 2024-12-04 13:36 | PC.NURSE ---
Report to the Outpatient Waiting Room, entrance under the green pavilion located off [facility], at time _0600_ on date _[id number]_. Planned Procedure Time: _0730_.? Time changes happen often and if your time is changed the preop area will call you the afternoon before. - You and your visitor will be asked to self-screen and do not enter if you have any COVID symptoms. Please call surgeon if you need to reschedule. - A mask is optional within the hospital at this time. - No food or drink from midnight until time of surgery and no smoking, or chewing tobacco (or any form of nicotine). No chewing gum, candy or mints. Take only the following medications with a SIP of water on the morning of surgery: ___Escitalopram____ DO NOT STOP ANY OF YOUR OTHER PRESCRIPTION MEDICATIONS PRIOR TO SURGERY EXCEPT THE FOLLOWING Hold all vitamins and supplements for 3 days per anesthesiologist. Medications to discontinue per physician Please inquire of Dr Aiken if need to hold Aspirin or OK to continue taking. Date to take last dose Please no make-up, nail [place], hairspray, perfume, deodorant, or body powder the day of surgery.? No jewelry (including any body piercings) or valuables the day of surgery, leave them at home.? Please take a shower or bath the night before, or the morning of, surgery with an antibacterial soap.? Wear comfortable, loose fitting clothing.? - Jewelry must be removed prior to entering the operating room.? Rings and piercings that are not removed may be cut off. - The hospital will not accept responsibility for valuables.? - Please leave all valuables, including medications, at home the day of surgery. If you are going home after surgery, a licensed tilt tray driver must drive you home.? - NO public transportation without another adult if you receive anesthesia. - We recommend that an adult stay with you for 24 hours following discharge. - We also recommend that you do not drive, make important decision, drink alcoholic beverages, or take any drugs that were not prescribed by your health care provider for at least 24 hours after your discharge time. Follow any additional instructions given to you from your surgeon. Telephone instructions given to __Florin__and asked if any additional questions and then verbalized understanding. Patient advised to call surgeon office or pre surgery nurse liaison [phone] if any additional questions.
--- NOTE | 2025-02-28 08:34 | PC.NURSE ---
Addendum entered by Minh Manuel RN 02/28/25 08:50: Correction: Patient told clear liquids until 0630am then nothing to drink until after surgery. Original Note: Report to the Outpatient Waiting Room, entrance under the green pavilion located off [facility], at time _1230_ on date _[id number]_. Planned Procedure Time: _230pm_.? Time changes happen often and if your time is changed the preop area will call you the afternoon before. - You and your visitor will be asked to self-screen and do not enter if you have any COVID symptoms. Please call surgeon if you need to reschedule. - A mask is optional within the hospital at this time. Patients may have clear liquids (water, carbonated beverages, clear teas, apple juice) until 3 hours prior to surgery with a maximum of 20 ounces. - No food from midnight until time of surgery and no smoking, or chewing tobacco (or any form of nicotine). No chewing gum, candy or mints. Take only the following medications with a SIP of water on the morning of surgery: ___Escitalopram____ DO NOT STOP ANY OF YOUR OTHER PRESCRIPTION MEDICATIONS PRIOR TO SURGERY EXCEPT THE FOLLOWING Hold all vitamins and supplements for 3 days per anesthesiologist. Medications to discontinue per physician ___Aspirin and Meloxicam per Dr Aiken's instructions____ Date to take last dose Please no make-up, nail mohawk, hairspray, perfume, deodorant, or body powder the day of surgery.? No jewelry (including any body piercings) or valuables the day of surgery, leave them at home.? Please take a shower or bath the night before, or the morning of, surgery with an antibacterial soap.? Wear comfortable, loose fitting clothing.? - Jewelry must be removed prior to entering the operating room.? Rings and piercings that are not removed may be cut off. - The hospital will not accept responsibility for valuables.? - Please leave all valuables, including medications, at home the day of surgery. If you are going home after surgery, a licensed driver engineer must drive you home.? - NO public transportation without another adult if you receive anesthesia. - We recommend that an adult stay with you for 24 hours following discharge. - We also recommend that you do not drive, make important decision, drink alcoholic beverages, or take any drugs that were not prescribed by your health care provider for at least 24 hours after your discharge time. Follow any additional instructions given to you from your surgeon. Telephone instructions given to __Florin__and asked if any additional questions and then verbalized understanding. Patient advised to call surgeon office or pre surgery nurse liaison [phone] if any additional questions.
--- OUTSIDE RECORDS SUMMARY | 2025-03-05 01:12 | XMS_ITS | Referral Summary ---
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 [address] [place] [address] PCP - General Family Medicine 06/03/19
--- OUTSIDE RECORDS SUMMARY | 2025-03-05 01:12 | XMS_ITS | Clinical Summary ---
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
--- OUTSIDE RECORDS SUMMARY | 2025-03-05 01:13 | XMS_ITS | Data Portability ---
Author Organization [place] - [employer], Parisa Phillip Address [address] [place] [address] Care Team Providers Care Rn Family Name Role Phone HUMA MALONE Primary Care Provider [phone] Assessment Encounter Date Assessment Date Assessment LastModified [...] voiced. I mar one tiger stripe tube Not available 03/21/2024 10:44:02 05/30/2024 05/30/2024 Gave the influenza vaccine today on patient left deltoid. Patient left with no complications. [email or web address] Not available 05/30/2024 15:12:35 Plan of Treatment Reminders Order Date Submit Date Provider Last Modified By Organization Details Last Modified Time Details Appointments None recorded. Lab HbA1c (hemoglobin A1c), blood 2023 [email or web address], [address], 4 10:55:35 lipid panel, blood 2023 024 [place] [address] [address] [facility] [address], [address], 4 10:55:36 glucose, QN, fingerstick , blood (glucometer ) 2023 024 [place] [address] [address] [address], [address], 4 10:55:37 cotinine, quantitativ e, unspecified specimen 2023 024 [place] [address], [address], 4 10:55:38 lipid panel, serum 2023 024 [facility], [address] [place] [address], [place], [address], 4 10:08:48 Referral None recorded. Procedures None [...] mg/dL 100-19 9 normal Not Available [facility] ([facility]) [address] [facility], [place], [address], 03/22/2024 10:08:47 03/21/20 24 03/22/2024 LIPID PANEL AND CHOL/ HDL RATIO triglyceride s 71 mg/dL 0-149 normal Not Available [facility] ([facility]) [address] [facility], [place], [address], 03/22/2024 10:08:47 03/21/20 24 03/22/2024 LIPID PANEL AND CHOL/ HDL RATIO HDL cholesterol 71 mg/dL >39 normal Not Available [facility] ([facility]) [address] [facility], [place], [address], 03/22/2024 10:08:47 03/21/20 24 03/22/2024 LIPID PANEL AND CHOL/ HDL RATIO VLDL cholesterol booker 14 mg/dL 5-40 Not Available [facility] ([facility]) [address] [facility], [place], [address], 03/22/2024 10:08:47 03/21/20 24 03/22/2024 LIPID PANEL AND CHOL/ HDL RATIO LDL chol calc ([facility]) 81 mg/dL 0-99 Not Available [facility] ([facility]) [address] [facility], [place], [address], 03/22/2024 10:08:47 03/21/20 24 03/22/2024 LIPID PANEL AND CHOL/ HDL RATIO LDL calc 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 chol/HDL ratio 2.3 ratio 0.0-5. 0 T. Chol/ HDL Ratio Men Women 1/2 Avg.R isk 3.4 3.3 Avg.R isk 5.0 4.4 2X Avg.R isk 9.6 7.1 3X Avg.R isk 23.4 11.0 Not Available [facility] ([facility]) [address] [place], [address], 03/22/2024 10:08:47 03/21/20 24 03/21/2024 HbA1c (hemo globi n A1c), blood HbA1c 6.5 Not Available [address], [address], 03/21/2024 08:28:01 03/21/20 24 03/21/2024 lipid panel , blood total cholesterol >400 mg/dL <200 Not Available [address], [address], 03/21/2024 08:28:01 03/21/20 24 03/21/2024 lipid panel , blood LDL mg/dL <100 Not Available [address], [address], 03/21/2024 08:28:01 03/21/20 24 03/21/2024 lipid panel , blood HDL 119 mg/dL >50 Not Available [address], [address], 03/21/2024 08:28:01 03/21/20 24 03/21/2024 lipid panel , blood triglyceride s 239 mg/dL <150 Not Available [address], [address], 03/21/2024 08:28:01 03/21/20 24 03/21/2024 lipid panel , blood TC/HDL ratio <4.5 Not Available [address], [address], 03/21/2024 08:28:01 03/21/20 24 03/21/2024 gluco se, QN, finge rstic k, blood (gluc omete r) blood glucose (fasting) 149 md/dL 65-99 Not Available [address], [address], 03/21/2024 08:28:01 03/21/20 24 03/21/2024 gluco se, QN, finge rstic k, blood (gluc omete r) blood glucose (non-fasting ) mg/dL <140 Not Available [facility] - [address], [address], 03/21/2024 08:28:01 03/21/20 24 03/21/2024 cotin ine, quant itati ve, unspe cifie d speci men Urine Pass Not Available [facility] [address], [address], 03/21/2024 08:28:01 Result Notes None recorded. Problems Name Problem SNOMED Code Status Onset Date Resolution Date Notes Provider Name and Address Organization Details Recorded Time Contusio n of eye 249608220 Active 2022 CHRISTIANO JORGENSEN NP [address], [facility] [place], [address] , [place] - [facility] 3 16:22:28 Contusio n of eye 298528357 Active 2022 CHRISTIANO JORGENSEN NP [address], [facility] [place], [address] , [place] - [facility] 3 16:30:13 Hyperlip idemia 33211097 Active 2015 Hyperlip idemia; PROBABIL ITY: 0 Confir mation: Confirme carissa Doradoa tedDispl ay: Hyperlip idemia C lassific ation: Medical Lifec[facility] eDateTim e: 19:18:54 +00:00 Not Available [facility] 4 04:26:26 Blephari tis of left eyelid 26255777153 9102 Completed 202110/03/2023 Blephari tis of left eyelid; PROBABIL ITY: 0 SENSIT IVITY: 0.0 Conf irmation : Confirme d Annota tedDispl ay: Blephari tis of left eye Clas adriannati on: Medical Not Available [facility] 4 04:26:27 Requires varicell a vaccinat ion 915203583 Active 2022 Requires varicell a vaccinat ion; PROBABIL ITY: 0 SENSIT IVITY: 0.0 Conf irmation : Isaiah ferrer Annota tedDispl ay: Need for shingles vaccine Classifi cation: Medical Lifecycl eDateTim e: 20:32:00 +00:00 Not Available [facility] 4 04:26:27 Sleep apnea 31745953 Active 2015 Sleep apnea... ..; PROBABIL ITY: 0 Confir mation: Confirme d Annota tedDispl ay: Sleep apnea Cl assifica tion: Medical Lifecycl eDateTim e: 17:20:18 +00:00 Not Available [facility] 4 04:26:27 Seasonal allergic rhinitis 556137491 Active 2015 Seasonal allergie s.....; PROBABIL ITY: 0 Confir mation: Confirme d Annota tedDispl ay: Seasonal allergie s Classi fication : Medical Lifecycl eDateTim e: 19:18:34 +00:00 Not Available [facility] 4 04:26:27 Hyperten sive disorder 02739905 Active 2017 Hyperten sive disorder ; PROBABIL ITY: 0 Confir mation: Confirme d Annota tedDispl ay: Hyperten jm Cla ssificat ion: Medical Lifecycl eDateTim e: 19:23:17 +00:00 Not Available [facility] 4 04:26:27 Arthriti s 7177365 Active 2015 Arthriti s; PROBABIL ITY: 0 Confir mation: Confirme d Annota tedDispl ay: Arthriti s Classi fication : Medical Lifecycl eDateTim e: 19:19:42 +00:00 Not Available [facility] 4 04:26:27 Type 2 diabetes mellitus 59352992 Active 2015 Diabetes mellitus type 2; PROBABIL ITY: 0 Confir mation: Confirme d Annota tedDispl ay: Diabetes mellitus type 2 Classi fication : Medical Lifecycl eDateTim e: 17:19:48 +00:00 Not Available [facility] 4 04:26:27 Problem Notes None recorded. Medical Equipment None Reported. Allergies Allergen ID Allergen Name Allergen Category Reaction Reaction Severity Criticality Documentation Date Start Date Code Code System Note Provider Name and Address Organization Details Recorded Time 740688 Product containin g penicilli n (product) medicatio n hives Not available low 06/13/2023 82385 8001 SNOMED [place], [place] - [facility] 3 14:31:30 Medications Name Sig Start Date Stop Date Status Note LastModified by Organization Details LastModified Time Lidocaine Viscous 2 % mucosal solution 01/16 completed StopType : Physicia n Stop Mac gIdentif icationN umber: [id number] T otalRefi lls: 0 Consta ntIndica tor: [...] Physicia n Stop Mac gIdentif icationN umber: [id number] S cheduled PRN: No Total Refills: 0 Consta ntIndica tor: Yes CSAS chedule: 0.0 acti ve_statu s_dt_tm: 0 11:26:51 AM Not Available Not Available Not Available acyclovir 400 mg tablet 2021 active Duration : 7 Durati onUnit: day(s) S topType: Soft Stop Mac gIdentif icationN umber: [id number] S cheduled PRN: No Total Refills: 0 [...] Physicia n Stop Mac gIdentif icationN umber: [id number] S cheduled PRN: No Total Refills: 0 Consta ntIndica tor: Yes CSAS chedule: 0.0 acti ve_statu s_dt_tm: 02/20/2020 11:19:15 AM Not Available Not Available Not Available Bactroban 2 % topical ointment 04/07 completed StopType : Physicia n Stop Mac gIdentif icationN umber: [id number] S cheduled PRN: No Total Refills: 0 Consta ntIndica tor: Yes acti ve_statu s_dt_tm: 03/28/2016 12:42:13 PM Not Available Not Available Not Available pantopraz ole 40 mg tablet,de layed release active Not Available Not Available Not Available simvastat in 20 mg tablet 10/13 completed Disconti nueDate: 3 2:21:00 PM StopT ype: Physicia n Stop Mac gIdentif icationN umber: [id number] T otalRefi lls: 0 Cancel Reason: Duplicat e Order Co nstantIn dicator: Yes CSAS chedule: 0.0 acti ve_statu s_dt_tm: 11/23/2015 12:19:15 PM Not Available Not Available Not Available erythromy shawn 5 mg/gram (0.5 %) eye ointment 02/24 completed Duration : 5 Durati onUnit: days Sto pType: Physicia n Stop Mac gIdentif icationN umber: [id number] S cheduled PRN: No Total Refills: 0 Consta ntIndica tor: Yes CSAS chedule: 0.0 acti ve_statu s_dt_tm: 02/20/2020 11:18:26 AM Not Available Not Available Not Available metformin 1,000 mg tablet active Not Available Not Available Not Available Cipro 500 mg tablet 01/14 completed Duration : 7 Durati onUnit: day(s) S topType: Physicia n Stop Mac gIdentif icationN umber: [id number] S cheduled PRN: No Total Refills: 0 [...] Physicia n Stop Mac gIdentif icationN umber: [id number] S cheduled PRN: Yes Tota lRefills : 0 Consta ntIndica tor: No activ e_status _dt_tm: 11/23/2015 12:44:46 PM Not Available Not Available Not Available escitalop luly 10 mg tablet active Not Available Not Available Not Available meloxicam 10/13 completed Disconti nueDate: 3 2:20:00 PM StopT ype: Physicia n Stop Mac gIdentif icationN umber: [id number] T otalRefi lls: 0 Cancel Reason: Duplicat e Order Co nstantIn dicator: Yes CSAS chedule: 0.0 acti ve_statu s_dt_tm: 9 2:37:38 PM Not Available Not Available Not Available aspirin 10/13 completed StopType : Physicia n Stop Mac gIdentif icationN umber: [id number] T otalRefi lls: 0 Consta ntIndica tor: Yes CSAS chedule: 0.0 acti ve_statu s_dt_tm: 9 2:38:06 PM Not Available Not Available Not Available [facility] [facility] 07/17 completed Disconti nueDate: 07/17/20 18 1:24:00 PM StopT ype: Physicia n Stop Mac gIdentif icationN umber: [id number] T otalRefi lls: 0 Cancel Reason: Physicia n Request Constant Indicato r: Yes CSAS chedule: 0.0 acti ve_statu s_dt_tm: 11/23/2015 12:19:15 PM Not Available Not Available Not Available Fluzone 05/29 completed DrugForm : Susp Sto pType: Physicia n Stop Mac gIdentif icationN umber: [id number] S cheduled PRN: No NextD oseDate: 7 1:23:00 PM Const antIndic ator: No activ e_status _dt_tm: 1:23:57 PM Not Available Not Available Not Available Victoza 07/17 completed Disconti nueDate: 07/17/20 18 1:20:00 PM StopT ype: Physicia n Stop Mac gIdentif icationN umber: [id number] T otalRefi lls: 0 Cancel Reason: Physicia n Request Constant Indicato r: Yes CSAS chedule: 0.0 acti ve_statu s_dt_tm: 11/23/2015 12:19:15 PM Not Available Not Available Not Available Helen Chewable Low Dose Aspirin 81 mg tablet 2022 active StopType : Soft Stop Mac gIdentif icationN umber: [id number] T otalRefi lls: 0 Consta ntIndica tor: Yes CSAS chedule: 0.0 acti ve_statu s_dt_tm: 3 2:23:39 PM Not Available Not Available Not Available Iron 100 Plus 2022 active StopType : Soft Stop Mac gIdentif icationN umber: [id number] T otalRefi lls: 0 Consta ntIndica tor: Yes CSAS chedule: 0.0 acti ve_statu s_dt_tm: 3 2:23:39 PM Not Available Not Available Not Available Jardiance 25 mg tablet active Not Available Not Available Not Available Afluria 5015-855905/26 completed StopType : Physicia n Stop Mac Rajinderdentif icationN umber: [id number] N extDoseD ate: 6 3:00:00 PM Const antIndic ator: No activ e_status _dt_tm: 6 2:45:59 PM Not Available Not Available Not Available Shingrix (PF) 10/13 completed StopType : Physicia n Stop Mac gIdentif icationN umber: [id number] N extDoseD ate: 3 2:33:00 PM Total Refills: 0 Consta ntIndica tor: No CSASc hedule: 0.0 acti ve_statu s_dt_tm: 3 2:33:12 PM Not Available Not Available Not Available Fluzone Quad (PF) 60 mcg (15 mcg x 4)/0.5 mL IM suspensio n 06/27 completed StopType : Physicia n Stop Mac gIdentif icationN umber: [id number] N extDoseD ate: 8 1:58:00 PM Const [...] Physicia n Stop Mac gIdentif icationN umber: [id number] N extDoseD ate: 06/04/20 19 2:34:00 PM Const antIndic ator: No activ e_status _dt_tm: 06/05/20 19 2:36:09 PM Not Available Not Available Not Available Fluzone Quad (PF) 06/28 completed StopType : Physicia n Stop Mac Yolanda fitzpatricktionN umber: [id number] S cheduled PRN: No NextD oseDate: 2 [...] Updated DateTime 4 177.8 cm 26.3 kg/m2 64173.4 g 65 /min 98.3 [degF] 99 % 99 % 124/80 mm[Hg] Eliud Cook [place] [facility] 4 10:07:59 Date Recorded Body height Body mass index (BMI) Body weight Heart rate Oxygen saturation Oxygen saturation in Arterial blood by Pulse oximetry Body temperature Systolic And Diastolic Provider Name and Address Organization Details Last Updated DateTime 3 177.8 cm 25.7 kg/m2 78603.0 3 g 86 /min 98 % 98 % 98.6 [degF] 120/79 mm[Hg] Rob Fernández [place] - [facility] 3 14:34:59 Social History Question Answer Notes LastModified by Organizat ion Details LastModified Time Tobacco Smoking Status Never Smoker Eliud jackson [place] - [facility] 03/21/2024 10:09:44 In The 14 Days Before Symptom Onset, Have You Had Close Contact With A Laboratory-confirm ed COVID-19 While That Case Was Ill? No [email or web address] Information n ot available 03/21/2024 In The 14 Days Before Symptom Onset, Have You Had Close Contact With A Person Who Is Under Investigation For COVID-19 While That Person Was Ill? No [email or web address] Information not available 03/21/2024 Have You Been To An Area Known To Be High Risk For COVID-19? No Information not available 03/21/2024 Cigar Smoking No [email or web address] Information not available 03/21/2024 Sex: Unknown Functional [...] Lung Cancer N Hypothyroidism N Glaucoma N [place] N Bipolar N Hypertension (High Blood Pressure) [...] 05/30/2024 completed Eliud Cook [place], [place] - [facility] 05/30/2024 15:12:19 Past Encounters Encounter ID Performer Location Encounter Start Date Encounter Closed Date Diagnosis/Indication Diagnosis SNOMED-CT Code Diagnosis ICD10 Code Diagnosis Note [id number] CHRISTIANO JORGENSEN NP [address] [address] 06/13/2023 14:26:20 06/13/2023 16:46:32 Contusion of eye 031105822 S05.12XA Area cleansed with NS and JOSE ANGEL applied. Encouraged to keep the area clean and dry. Apply JOSE ANGEL BID. Ice pack given to pt and encouraged to use ice pack for 10 minutes 4-5 times per day. F/u if symptoms worsen or signs of infection which were reviewed with pt. Pt verbalized understand ing. [id number] Arsenio Sexton DO [address] [address] 03/21/2024 09:57:13 03/21/2024 11:18:58 Adult health examination 326935805 Z00.00 Urine cotinine is negative. A1c is 6.7%. POC lipid panel reveals TC >400 with HDL of 119 and triglyceri nicole of 239. Last year TC was 204 with normal triglyceri nicole and HDL. Questionin g POC results. Serum lipid panel ordered. Will call him with the results and complete [facility] forms at that time. Will need to come by health center to picker completed forms to send to [facility]. Encouraged to f/u for colon cancer screening. Pt verbalized understand ing. Type 2 ryan betes mellitus 08564593 E11.9 Encouraged healthy well balanced diet low in sugar and simple carbs. F/u with PCP for ongoing management . Pt verbalized understand ing. [id number] Arsenio Sexton DO [address] [address] 05/30/2024 14:43:16 05/30/2024 15:13:20 Administration of influenza vaccine 97461361 Z23 Health Concerns Section Related Observation LastModified by Organization Detai ls LastModified Time None Recorded Concern Status LastModified by Organization Details LastModified Time None Recorded Advance Directives Directive None Recorded Payers Insurance Date Sequence Insurance Name Policy Number Policy Shaffer Covered Member ID Shaffer Member ID Guarantor Name 06/21/2023 1 [employer] - [employer] - ALL PLANS (PPO) [id number] Florin Cole UNKNOWN Florin Cole 03/18/2024 1 [employer] - [employer] - ALL PLANS (PPO) [id number] Florin Cole UNKNOWN Florin Cole 03/22/2024 1 [employer] - [employer] - ALL PLANS (PPO) [id number] Florin Cole UNKNOWN Florin Cole 04/05/2024 1 [employer] - [employer] - ALL PLANS (PPO) [id number] Florin Cole UNKNOWN Florin Cole 06/03/2024 1 [employer] - [employer] - ALL PLANS (PPO) [id number] Florin Cole UNKNOWN Florin Cole 11/09/2024 1 [employer] - [employer] - ALL PLANS (PPO) [id number] Florin Cole UNKNOWN Florin Cole 11/09/2024 1 [employer] - [employer] - ALL PLANS (PPO) [id number] Florin Cole UNKNOWN Florin Cole Notes Date Note Type Note Provider Name and Address Organization Details Recorded Time 06/13/2023 text/html Pt presents to [facility] due to facial/left eye [...] years ago. CHRISTIANO JORGENSEN NP [address], [place], [address], [place] [facility] 06/13/2023 16:45:58 03/21/2024 text/html Pt with a hx of diabetes and HTN presents to [facility] for [facility] screening. Takes [...] pneumonia vaccine. CHRISTIANO JORGENSEN NP [address], [place], [address], [place] [facility] 03/21/2024 11:00:36
--- OUTSIDE RECORDS SUMMARY | 2025-03-05 01:13 | XMS_ITS | Clinical Summary ---
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 Gender Identity Not on file Sexual Orientation Not on file Last Filed Vital Signs Vital Sign Reading Time Taken Comments Blood Pressure 116/78 07/03/2010 8:21 AM BUZZSAW OPERATOR HELPER Pulse 60 07/03/2010 8:21 AM BUZZSAW OPERATOR HELPER Temperature 36.7 C (98.1 F) 07/03/2010 8:21 AM BUZZSAW OPERATOR HELPER Respiratory Rate 16 07/03/2010 8:21 AM BUZZSAW OPERATOR HELPER Oxygen Saturation 97% 07/03/2010 8:21 AM BUZZSAW OPERATOR HELPER Inhaled Oxygen Concentration - - Weight 95.7 kg (211 lb) 06/30/2010 4:00 PM BUZZSAW OPERATOR HELPER Height 177.8 cm (5' 10) 06/30/2010 4:00 PM BUZZSAW OPERATOR HELPER Body Mass Index 30.28 06/30/2010 4:00 PM BUZZSAW OPERATOR HELPER Plan of Treatment Health Maintenance Due Date Last Done Comments DTAP/TDAP/TD VACCINES (1 - Tdap) 1980 COLORECTAL SCREENING 2006 Colorectal Cancer Screening 2006 FIT-DNA Q 3 years 2006 FIT/FOBT Q 1 year 2006 Flex Sig/CT Colonography Q 5 years 2006 ZOSTER VACCINE (1 of 2) 2011 INFLUENZA VACCINE (#1) 2025 RSV VACCINE (60+ or ) (1 - 1-dose 75+ series) [address] [facility] [employer] char[employer] PPO Advance Directives For more information, please contact: [phone] * Full Code (Latest Code Status on File) Date Activated Date Inactivated Comments 07/02/2010 11:52 AM 07/03/2010 10:44 AM * Full Code Date Activated Date Inactivated Comments 07/02/2010 7:48 AM 07/02/2010 11:52 AM
--- OUTSIDE RECORDS SUMMARY | 2025-03-05 01:13 | XMS_ITS | Clinical Summary ---
Author Organization [facility] Address [address] [place] [address] Care Team Providers Care Evs Manager Name Role Phone Blayne Monae MD Primary Care Provider [phone] Source Comments [facility],non-owned Affiliates and Associated Physician Practices is amultiple site organization consisting of ambulatory clinics and hospital sitesin [place], [place]. This disclosure is being madepursuant to the Care Everywhere program and may not contain all information available regarding this patient. 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
--- NOTE | 2025-03-05 06:53 | WPDHPUPDATE1 ---
History and Physical Update Update Date/Time: 03/05/25 06:53 Patient seen and examined in pre-operative holding area. No interval change in medical history or symptoms. Patient recalls previous discussion of benefits and alternatives to procedure. Continues to desire to proceed with left middle finger a1 gabby release. Reviewed procedure, post-op expectations and risks including but not limited to bleeding, infection, injury to tendon/nerve/vessel, decreased hand function, stiffness, RSD, no change or worsening of symptoms. I discussed the possible use of assistants and their participation in the case. Patient stated understanding and signed the consent form wishing to proceed.
--- NOTE | 2025-03-05 06:54 | P.OP_ITS ---
Procedure Note - Detailed Date of Procedure 03/05/25 Pre-op Diagnosis Left Middle Trigger Finger Post-op Diagnosis Same Procedure Performed left middle finger a1 gabby release Surgeon Leo Aiken MD Product Management Manager miguel nolan pa-c Anesthesia MAC Description of Procedure INFORMED CONSENT: The patient was seen and examined and marked in the pre-op area.? The patient signed the consent form. PROCEDURE IN DETAIL:The patient taken back to OR on the stretcher in supine position. Time out performed with anesthesia, surgeon and staff agreeing on patient's name site and surgery to be performed SCDs were placed on the lower extremities and inflated. A tourniquet was placed on {left} upper extremity and antibiotics given IV After anesthesia administered sedation I injected 3{}cc 1%lido and 0.5% marcaine plain at the operative site The?{left upper extremity}?was prepped and draped in sterile fashion the??{left upper extremity} was? exsanguinated with Esmarch bandage and tourniquet inflated to 250mmHg I proceeded with making a longitudinal incision over the left middle finger through skin and dermis with a 15 blade scalpel. Littler scissors were used to spread through subcutaneous tissue down to the A1 gabby. Fifteen blade scalpel was used to make initial incision in the gabby and then sits Littler scissors were used to spread above and below it proximally and distally completing the transection entirely. Ragnell retractor was used withdrawal the FDS and FDP te ndons inspection. The tendons were free of masses and synovitis and gliding smoothly in the sheath without triggering or crepitus. I irrigated with normal saline and closed with 4-0 chromic. A dressing of xeroform, 4x4, shaniqua, and maria r bandage was applied after the tourniquet was let down noting the hand was warm and well perfused. The patient was then awaken from anesthesia and transferred to the recovery room in stable condition.? Complications - none EBL- 0cc Disposition - home in stable condition miguel nolan pa-c was essential for positioning, retraction, closure and dressing placement [facility] Billing Surgery - Charge Forward: Surgery Billing ([id number] for miguel)
[2025-03-05 12:35] VITALS: BP 126/77; PULSE 74; RESP 18; TEMP 36.5; O2SAT 97
[2025-03-05] MEDS: ACETAMINOPHEN 500 MG TABLET 1000 MG PO (13:18)
[2025-03-05] MEDS: LACTATED RINGERS 1,000 ML 30 ML IV CONT (13:20)
--- NOTE | 2025-03-05 13:59 | P.PNAN_ITS ---
Anes - Initial Pre Proc Eval Procedure: Operation Date: 03/05/25 14:30 Proposed Procedures p Left Middle A-1 Dave Finger Release - Leo Aiken MD Date/Time: 03/05/25 13:59 Surgeon: Leo Aiken MD Pre Op Diagnosis: Left Middle Trigger Finger Patient Data Age: 64 Gender: M Height: 1.78 m Weight: 75.2 kg Last Vital Signs Temp 97.7 F 03/05/25 12:35 Pulse 74 03/05/25 12:35 Resp 18 03/05/25 12:35 BP 126/77 03/05/25 12:35 Pulse Ox 97 03/05/25 12:35 O2 Del Method Room Air 03/05/25 12:35 Allergies Allergy/AdvReac Type Severity Reaction Status Date / Time Penicillins Allergy Intermediate hives Verified 03/05/25 13:11 Home Medications ?Medication ?Instructions ?Recorded ?Confirmed ?Type aspirin 81 mg tablet,delayed 162 mg PO DAILY 07/11/19 03/05/25 History release blood sugar diagnostic (Contour #100 ea 08/11/20 12/04/24 Rx Next Test Strips) blood-glucose meter (Contour Next #1 ea 08/11/20 12/04/24 Rx Meter) ferrous sulfate 325 mg (65 mg 325 mg PO DAILY 05/16/22 03/05/25 History iron) tablet lancets 33 gauge (OneTouch Delica #100 ea 04/05/23 12/04/24 Rx Plus Lancet) lancing device with lancets kit #1 ea 04/10/23 12/04/24 Rx (OneTouch Delica Plus Lancing Device kit) pen needle, diabetic 33 gauge x #10 ea 05/15/23 12/04/24 Rx (Comfort EZ Pen Higginson) meloxicam 15 mg tablet 15 mg PO DAILY #90 tabs 06/10/24 03/05/25 Rx empagliflozin 25 mg tablet See Rx Instructions .Route 09/19/24 03/05/25 Rx (Jardiance) .COMPLEX #90 tabs escitalopram oxalate 10 mg tablet See Rx Instructions .Route 09/19/24 03/05/25 Rx .COMPLEX #90 tabs simvastatin 10 mg tablet 10 mg PO DAILY #90 tabs 09/19/24 03/05/25 Rx semaglutide 1 mg/dose (4 mg/3 mL) See Rx Instructions .Route 11/26/24 03/05/25 Rx subcutaneous pen injector (Ozempic) .COMPLEX #9 mL lisinopril 10 mg tablet 10 mg PO DAILY #90 tabs 02/17/25 03/05/25 Rx metformin 1,000 mg tablet 1,000 mg PO BID #180 tabs 02/17/25 03/05/25 Rx pantoprazole 40 mg tablet,delayed 40 mg PO QAM #90 tabs 02/17/25 03/05/25 Rx release Laboratory Tests 03/05/25 13:25 POC Capillary Glucose 111 H mg/dl (65-105) Patient hx anesthesia problems: none Family hx anesthesia problems: none Results Review: All pre-operative results and documents have been reviewed as part of the pre- operative evaluation. [facility] Past Medical History Medical History HTN (hypertension) Rhinosinusitis Primary osteoarthritis JORGE (obstructive sleep apnea) HLD (hyperlipidemia) Type 2 diabetes mellitus without complications Depression Surgical History Surgical History History of tonsillectomy History of sinus surgery Family History Family History Mother Diabetes mellitus Sibling Diabetes mellitus Family history of cardiovascular disease Carcinoma of colon Father Family history of cardiovascular disease Social History Social History Social History: Single Smoking status: Never smoker Tobacco type: cigarettes Second hand tobacco smoke exposure: No Alcohol intake: current Drinks per week: 10 Alcohol use details: BEER/WINE Substance use: never Substance use type: does not use Living arrangements: alone Occupation/Education: occupation Gender identity (if verbalized by the patient): Male Spiritual care concerns: No Anes - Eval Final PreProcedure Day of Procedure 03/05/25 13:59 Patient weight: normal Lungs: normal air movement Airway: Mallampati scale class II Neurological: alert and oriented Last oral intake: >/= 8 hours ASA classification: III Emergent: no Anesthetic plan: proceed Anesthesia type and monitoring: general GIVS and standard monitoring Results Review: All pre-operative results and documents have been reviewed as part of the pre- operative evaluation. HTN, hyperlipidemia, JORGE on CPAP, DM fsbs 111. Informed Consent: The patient's anesthetic plan and its attendant risks and benefits were discussed with the patient/family/POA. Questions were solicited and answers provided to the satisfaction of the patient/family/POA.
[2025-03-05] MEDS: ceFAZolin 2 GM in SODIUM CHLORIDE 0.9% IV 50 ML 100 ML IVPB (15:02)
[2025-03-05] MEDS: BUPivacaine HCL 0.5% 10 ML AMP INFILTRATE (15:14)
[2025-03-05] MEDS: LIDOCAINE 1% LOCAL INJ 10 ML VIAL INFILTRATE (15:15)
[2025-03-05 15:17] VITALS: BP 120/71; PULSE 78; RESP 16; O2SAT 96
[2025-03-05 15:45] VITALS: BP 126/67; PULSE 70; RESP 16; O2SAT 96
[2025-03-05 16:15] VITALS: BP 125/71; PULSE 70; RESP 16
== END 2025-03-05 16:25 | disposition home or self-care (01) ==
PROVIDERS: PCP Family Medicine; Visit Provider Plastic Surgery
PROC: (CPT 26055; principal; 2025-03-05 14:30)
DX: M65.332 Trigger finger, left middle finger (principal); E78.5 Hyperlipidemia, unspecified; E11.9 Type 2 diabetes mellitus without complications; I10 Essential (primary) hypertension; G47.33 Obstructive sleep apnea (adult) (pediatric); F32.A Depression, unspecified; M19.91 Primary osteoarthritis, unspecified site; Z79.82 Long term (current) use of aspirin; Z79.84 Long term (current) use of oral hypoglycemic drugs; Z79.85 Long-term (current) use of injectable non-insulin antidiabetic drugs; Z99.89 Dependence on other enabling machines and devices; Z98.890 Other specified postprocedural states; Z80.0 Family history of malignant neoplasm of digestive organs; Z82.49 Family history of ischemic heart disease and other diseases of the circulatory system
CPT/HCPCS: 26055; 82948; J0690; A9270; J2003; J2250; J2704; J3010; J7120